=== PATIENT | female | born 1955 | race Caucasian/White ===

== ENCOUNTER 2019-12-15 09:14 | Outpatient (CLI) | payer MEDICAID, SELFPAY ==
--- NOTE | 2019-12-15 09:21 | FL_ITS ---
WS: [id number] Barium enema, 12/15/2019 Clinical Data: ABNORMAL COLONSCOPY/SCREENING COLON CANCER Fluoroscopy time: 2.3 minutes Comparison: None. Findings: The preliminary film shows multiple metallic clips in the right upper quadrant from a cholecystectomy . The barium was introduced in a retrograde fashion filling the entire colon. There are numerous divert icula of the descending colon and sigmoid region. No masses or polyps could be seen. There was reflux into the terminal ileum. The appendix was filled. There was moderate spasm of the descending colon d uring the examination. The postevacuation film was unremarkable. FL/FL barium enema [id number] Impression: Diverticula of the descending colon and sigmoid colon.
== END 2019-12-15 09:15 | disposition home or self-care (01) ==
LOC: RAD 09:15
PROVIDERS: Family Provider Physician Assistant Medical; Visit Provider Physician Assistant Medical
DX: K57.30 Diverticulosis of large intestine without perforation or abscess without bleeding (principal); R93.3 Abnormal findings on diagnostic imaging of other parts of digestive tract; Z12.11 Encounter for screening for malignant neoplasm of colon
CPT/HCPCS: 74270

== ENCOUNTER → 2021-02-15 16:09 | Outpatient (BNVA) | payer MEDICAID, SELFPAY | PROVIDERS: Family Provider Physician Assistant Medical; PCP Physician Assistant Medical; Referring Provider Family Medicine; Visit Provider Orthopaedic Surgery | DX: S99.911A Unspecified injury of right ankle, initial encounter (principal); X58.XXXA Exposure to other specified factors, initial encounter | CPT/HCPCS: 73610 ==

== ENCOUNTER 2021-02-15 16:29 | Outpatient (CLI) | payer MEDICAID, SELFPAY | END 2021-02-15 16:30 | disposition home or self-care (01) | LOC: SPT 16:30 | PROVIDERS: Family Provider Physician Assistant Medical; PCP Physician Assistant Medical; Visit Provider Orthopaedic Surgery | DX: Z46.89 Encounter for fitting and adjustment of other specified devices (principal); S82.831D Other fracture of upper and lower end of right fibula, subsequent encounter for closed fracture with routine healing; X58.XXXD Exposure to other specified factors, subsequent encounter | CPT/HCPCS: L1902 ==

== ENCOUNTER → 2021-09-26 15:40 | Outpatient (BNVA) | payer MEDICAID, SELFPAY | PROVIDERS: Family Provider Physician Assistant Medical; PCP Physician Assistant Medical; Referring Provider Physician Assistant Medical; Visit Provider Internal Medicine Cardiovascular Disease | DX: R06.02 Shortness of breath (principal); I50.33 Acute on chronic diastolic (congestive) heart failure; R06.00 Dyspnea, unspecified; I05.9 Rheumatic mitral valve disease, unspecified; I25.10 Atherosclerotic heart disease of native coronary artery without angina pectoris; E78.00 Pure hypercholesterolemia, unspecified; I27.20 Pulmonary hypertension, unspecified; G47.30 Sleep apnea, unspecified | CPT/HCPCS: 80048; 83880 ==

== ENCOUNTER 2021-11-24 10:34 | Outpatient (CLI) | payer MEDICAID, SELFPAY ==
[2021-11-24 10:51] VITALS: BMI 50.1
--- NOTE | 2021-11-24 11:02 | ECG_ITS ---
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 Interpretive Statements NAME OF STUDY: LEXISCAN SESTAMIBI STRESS TEST INDICATION: Heart Failure, New Onset, PROCEDURE: At the baseline, the EKG revealed sinus bradycardia with a rate of 56 bpm. The baseline blood pressure was 143/97 mm Hg with a heart rate of 56 beats/min. Lexiscan was infused over a period of 20 seconds. A total of 0.4 milligrams of Lexiscan was infused. The stress phase was continued for a total of 5 minutes. Heart rate at the end of the stress phase was 68 with a blood pressure 134/88. The EKG at the peak infusion revealed no significant changes. Sestamibi was injected 20 seconds after the Lexiscan infusion. Blood pressure at the end of the recovery phase was 138/90 with a heart rate of 66 per minute. CONCLUSION: 1. No significant EKG changes with the LexiScan infusion 2. No LexiScan induced chest pain or cardiac arrhythmia 3. Normal blood pressure and heart rate response 4. Sestamibi/sestamibi perfusion scan pending; see separate report. Electronically Signed On 12-01-2021 11:42:43 COAGULATING DRYING SUPERVISOR by Angelina Garber M.D. [email or web address]
--- NOTE | 2021-11-24 11:02 | NMCV_ITS ---
NM juve perf SPECT r/s* [id number] Eugenia Huang Age: 66 Gender: F : 1955 Exam Date: 11/24/2021 11:44 Ordering Phys: Angelina Garber MD ([email or web address]) Technologist: JIM Coronado Exam Location: [facility] Indications: SHORTNESS OF BREATH STRESS TEST Please see separate stress test report in [facility] for full findings IMAGE PROTOCOL Rest/Stress 1 Lexiscan Day Radiopharmaceutical Dose (mCi) Administration Site Administered by Rest: Tc-99m 10.7 IV JIM Jimenez Sestamibi Stress:Tc-99m 33.0 IV - right JIM Coronado Sestamisayra antecubital Rest: 24-Nov-2021 60 Discovery 630 Stress: 24-Nov-2021 30 Discovery 630 0.4mg Lexiscan.supine position only as patient was unable to lay prone. SPECT RESULTS Technical Quality: Excellent Raw Data Analysis: Normal Image Corrections: No attenuation or motion correction applied Summed Stress Score: 5 Summed Rest Score: 9 Summed Difference Score: 0 PERFUSION FINDINGS Moderate area of moderately decreased tracer uptake in the mid inferolateral, apical lateral, apical inferior, and LV apex. No significant reversibility was noted in these regions. Moderate area of slightly decreased tracer uptake was noted in the mid anteroseptal region. No significant reversibility was noted in this region as well FUNCTIONAL RESULTS (calculated via Gated SPECT) Stress Image LV EF (%): 74 Stress EDV (mL):114 TID: 1.04 Stress ESV (mL):30 FUNCTIONAL FINDINGS: Segmental wall motion analysis revealing no gross wall motion abnormalities IMPRESSIONS 1. Myocardial perfusion imaging revealing areas of persistent decreased tracer uptake in the inferolateral, anteroseptal and apical regions, most likely represent attenuation artifact. 2. Normal LV ejection fraction of 74%. 3. LV wall motion analysis revealing no gross wall motion abnormalities. 4. Normal LV volume. No significant coronary ischemia, based on the above findings Dr Angelina Garber MD FACC (Electronically Signed) Final Date: 24 November 2021 15:24 S
--- NOTE | 2021-11-24 12:23 | PC.NURSE ---
pt complains of excessive sob while lying for the nuclear imaging. 97% while siting, 92 while laying down. nurse called doctor for order for o2. Pt placed on 2L nasal canula and states she feels much better while laying down. will reapply o2 when pt returns for imaging.
[2021-11-24] MEDS: regadenoson 0.4 Mg/5 ml Syringe IVP (12:44)
[2021-11-24 12:55] VITALS: BP 138/90; PULSE 66
== END 2021-11-24 10:35 | disposition home or self-care (01) ==
LOC: CDL 10:39
PROVIDERS: PCP Physician Assistant Medical; Visit Provider Internal Medicine Cardiovascular Disease
DX: I50.9 Heart failure, unspecified (principal); R06.02 Shortness of breath
CPT/HCPCS: 78452; 93017; A9500; J2785

== ENCOUNTER 2022-01-23 14:33 | Outpatient (CLI) | payer MEDICAID, SELFPAY ==
[2022-01-23 15:12] LABS: Basophils # 0.1 10^3/uL (0.0-0.1); Basophils % 0.3 %; Eosinophils # 0.2 10^3/uL (0.0-0.8); Eosinophils % 0.5 %; Hematocrit 42.4 % (37.0-47.0); Hemoglobin 12.7 g/dL (11.5-15.3); Lymphocytes # 21.6 10^3/uL (0.8-4.8); Lymphocytes % 58.2 %; Mean Corpuscular Hemoglobin 24.7 pg (28.0-34.0); Mean Corpuscular Volume 82.3 fl (81-99); Mean Platelet Volume 12.4 fL (7.4-10.4); Monocytes % 13.5 %; Neutrophils # 10.11 10^3/uL (1.8-7.7); Neutrophils % 27.1 %; Nucleated Red Blood Cells % 0 %; Platelet Count 218 10^3/cmm (130-400); Red Blood Count 5.15 10^6/uL (4.1-5.3); Red Cell Distribution Width 14.9 % (12.1-15.1)
[2022-01-23 15:32] LABS: Alanine Aminotransferase 11 U/L (0-33); Albumin Level 4.2 g/dL (3.5-5.2); Alkaline Phosphatase 119 IU/L (35-105); Aspartate Amino Transferase 18 U/L (0-32); Blood Urea Nitrogen 9 mg/dL (8-23); Calcium 9.1 mg/dL (8.5-10.5); Carbon Dioxide 31 mmol/L (22-29); Chloride 101 mmol/L (98-107); Globulin 2.2 g/dL (1.3-4.6); Glomerular Filtration Rate 72.2 mL/min (90-130); Glucose 109 mg/dL (65-115); Lactate Dehydrogenase 213 U/L (135-214); Osmolality Calculated 291 mOsm/kg (285-295); Sodium 141 mmol/L (136-145); Total Bilirubin 0.6 mg/dL (0.15-1.2); Total Protein 6.4 g/dL (6.6-8.7)
[2022-01-23 16:01] LABS: White Blood Count 37.2 10^3/uL (4.0-10.0)
--- NOTE | 2022-01-24 17:44 | ONC CON_ITS ---
Dr. Huitron New Patient Note Patient: Eugenia Huang Unit #: [id number]: 1955 Dicatated By: Kavita Huitron M.D.Date of Visit: Jan 23, 2022 Onc MED New Patient/Consult Referring Physician: EMMA NOYOLA History of Present Illness: Ms. Eugenia Huang, is a 89-won[age]-xlo female with history of leukocytosis/lymphocytosis since December 2018, as per patient she was referred to medical oncology services in [place] where in January 2021, she underwent whole blood flow cytometry, which showed 2 distinct cell population, both of which show CLL phenotype with kappa light chain restriction. However, one of the population shows a bright expression of CD5 and dim expression of CD20 while the other shows moderate expression of CD5 and negative for CD20 and these features raises the possibility of biclonal disease process., As patient had no associated B symptoms and her CBC shows hemoglobin and platelet count within normal range and no significant lymphadenopathy, her medical oncologist decided to monitor. As per patient she did not go back to her medical oncologist in [place] since January 2021 and being followed by her PMD. As per patient in September 2021, she she undergone CT scan of abdomen pelvis for abdominal pain and that showed multiple indeterminate prominent peripancreatic, gastrohepatic and periportal lymph nodes measuring 1.8 x 3.8 x 2.1 cm and 1 in the ralf hepatis was 1.3 x 3.5 x 1.4 cm and they appear increased in size from CT scan of abdomen done in December 2018. As per patient she saw her primary care physician in December 2021 and at that time she was advised to establish oncology care here in [place]. Patient has history of sleep apnea, she used to use BiPAP machine Patient denies any night sweats, denies any recurrent fever, denies any weight loss, denies any peripheral lymphadenopathy, denies any abdominal fullness, denies jaundice, denies any dysuria or hematuria denies any sore throat. But generalized weakness and fatigue, and sleepy most of the time as she is not using her BiPAP machine as sleep study is under consideration to determine whether she will benefit from CPAP or BiPAP. Past Medical History: Ms. Huang's medical history consists of arteriosclerotic heart disease, chronic obstructive pulmonary disease, depression, gastroesophageal reflux disease, hyperlipidemia, hypertension, hypothyroidism, mitral valve stenosis, myocardial infarction, obstructive sleep apnea, right heart failure due to pulmonary hypertension, and type II diabetes. Past Surgical History: Ms. Huang's surgical/procedural history consists of cholecystectomy, coronary stent, hysterectomy, and colonoscopy in 2019. Medications: Aspirin 1 Tablet (of 81 mg) Tablet, enteric coated Oral daily, Atorvastatin Calcium 1 Tablet (of 40 mg) Oral daily, buPROPion HCl ER (SR) 1 Tablet (of 150 mg) Tablet SR 12 HR Oral b.i.d., Citalopram Hydrobromide 1 Tablet (of 40 mg) Oral daily, Furosemide 3 Tablet (of 20 mg) Oral b.i.d., Isosorbide Mononitrate ER 1 Tablet (of 30 mg) Tablet SR 24 HR Oral b.i.d., Levothyroxine Sodium 1 Tablet (of 50 mcg) Oral daily, Metoprolol Succinate 1 Capsule (of 50 mg) Capsule ER 24 Hr Sprinkle Oral daily, Oxybutynin Chloride 1 Tablet (of 5 mg) Oral b.i.d., Pantoprazole Sodium 1 Tablet (of 20 mg) Tablet, enteric coated Oral daily Allergies: Bactrim DS and Lisinopril. Social History: Ms. Huang is single. She is a daily smoker who has smoked 1.0 pack/day for 21 years. She has no history of drinking. She has indicated exposure to the following products: cigarettes. Ms. Huang reports the following support systems: lives with spouse, significant other, family, or friends. Family History: There is no documented family history. Review Of Symptoms: Review of Systems is not available for this patient. Vital Signs: Performed on Jan 23, 2022 15:52: 10, 0, 50.94 (HIGH), 2.43 sq.m, 66 in, 93 % (LOW), 60 /min, 18 /min, 111/73 mm(hg), 97.5 F (LOW), and 315.6 lbs (HIGH). Performance Status: 1 - No physically strenuous activity, but ambulatory and able to carry out light or sedentary work (e.g. office work, light house work). (ECOG) Physical Examination: ENMT - No mouth sores, no thrush, no jaundice, no cervical lymphadenopathy, Respiratory - Poor air entry otherwise clear, Cardiovascular - Regular rate and rhythm of heart, Abdomen - Soft, bowel sounds present, Extremities - Trace edema bilaterally. Lab/Imaging: Most recent lab results are not available for this patient. Impression: Chronic lymphocytic leukemia, stage 0, with normal hemoglobin and platelet count CT scan of abdomen pelvis done on October 11, 2021 for abdominal pain showed spleen mildly enlarged at 13.5 cm, and there is an indeterminate 2.8 cm left adrenal nodule and 1.8 x 3.8 x 2.1 cm peripancreatic lymph node and one of the ralf hepatis lymph node measuring 1.3 x 3.5 x 2.4 cm. Morbid obesity Sleep apnea, noncompliant with her BiPAP machine Depression Anxiety GERD Hypertension Mitral stenosis Coronary artery disease status post coronary artery stent done in May 2020. Chronic smoking Plan: Discussed with patient regarding her labs white blood count 37.2, hemoglobin 12.7 g medical 42.4 platelets 218,000 absolute neutrophil count 10,000, absolute lymphocyte count 21,600 CMP within normal limits including LDH Clinically, patient is doing well with the no new signs symptom e.g. B symptoms, her follow-up CBC done today shows hemoglobin and platelet count within normal range, moderate leukocytosis/lymphocytosis consistent with early stage chronic lymphocytic leukemia, no peripheral lymphadenopathy but CT scan of abdomen pelvis done in September 2021 for abdominal pain showed indeterminate intra-abdominal lymphadenopathy but no significant organomegaly e.g. mildly enlarged spleen at 13.5 cm. As far as chronic lymphocytic leukemia is concerned, she has stable disease and no associated symptoms, will continue to monitor and she will return to clinic in 4 months with CBC CMP LDH and CT scan of chest abdomen pelvis to assess intra-abdominal lymphadenopathy. Patient was advised to quit smoking, was offered any assistance she may need. Patient also has underlying sleep apnea which may be causing generalized weakness and fatigue, she was advised to use BiPAP machine as recommended by PMD, as per patient she is considering sleep study to determine whether BiPAP or CPAP is better for her. Patient was advised to call us in case she has any new B symptoms or any jaundice otherwise return to clinic in 4 months as mentioned above. Signed By: Kavita Huitron M.D. <<Signature on File>>
== END 2022-01-23 14:34 | disposition home or self-care (01) ==
PROVIDERS: PCP Physician Assistant Medical; Visit Provider Internal Medicine Hematology & Oncology
DX: C91.10 Chronic lymphocytic leukemia of B-cell type not having achieved remission (principal); J44.9 Chronic obstructive pulmonary disease, unspecified; F32.A Depression, unspecified; K21.9 Gastro-esophageal reflux disease without esophagitis; E78.5 Hyperlipidemia, unspecified; I10 Essential (primary) hypertension; E03.9 Hypothyroidism, unspecified; I25.2 Old myocardial infarction; I27.20 Pulmonary hypertension, unspecified; I50.9 Heart failure, unspecified; I25.10 Atherosclerotic heart disease of native coronary artery without angina pectoris; F17.200 Nicotine dependence, unspecified, uncomplicated; Z79.899 Other long term (current) drug therapy
CPT/HCPCS: 36415; 80053; 83615; 85025; 99205

== ENCOUNTER 2022-04-25 14:50 | Outpatient (CLI) | payer MEDICAID, SELFPAY ==
--- NOTE | 2022-04-25 15:32 | MM_ITS ---
WS: [id number] BILATERAL 3D TOMOSYNTHESIS DIGITAL SCREENING MAMMOGRAPHY WITH CAD CLINICAL INFORMATION: SCREENING HISTORY: Screening mammogram. No current complaints. COMPARISON: February 20, 2021 TECHNIQUE: Bilateral CC and MLO views. FINDINGS: Scattered fibroglandular densities bilaterally. A few incidental punctate calcifications. Prominent b ilateral axillary lymph nodes unchanged since February 20, 2021. No suspicious focal mass, asymmetry, ca lcifications, or architectural distortion. No evidence of malignancy. MM/[place] [id number] IMPRESSION: BI-RADS: 2-Benign FOLLOW UP: 1 Year Follow-up Recommend return to annual screening mammography.
== END 2022-04-25 14:51 | disposition home or self-care (01) ==
LOC: RAD 14:57
PROVIDERS: PCP Family Medicine; Visit Provider Family Medicine
DX: Z12.31 Encounter for screening mammogram for malignant neoplasm of breast (principal)
CPT/HCPCS: 77063; 77067

== ENCOUNTER 2022-08-23 17:30 | Oncology outpatient (recurring) (ONCR) | payer MEDICARE, MEDICAID, SELFPAY ==
[2022-08-20 09:00] LABS: Basophils # 0.1 10^3/uL (0.0-0.1); Basophils % 0.2 %; Eosinophils # 0.3 10^3/uL (0.0-0.8); Eosinophils % 0.6 %; Hematocrit 43.2 % (37.0-47.0); Hemoglobin 13.1 g/dL (11.5-15.3); Lymphocytes # 39.4 10^3/uL (0.8-4.8); Lymphocytes % 76.5 %; Mean Corpuscular HGB Conc 30.3 g/dL (30.0-36.0); Mean Corpuscular Volume 85.9 fl (81-99); Monocytes # 3.9 10^3/uL (0.2-0.9); Monocytes % 7.5 %; Neutrophils % 14.8 %; Nucleated Red Blood Cells % 0 %; Platelet Count 148 10^3/cmm (130-400); Red Blood Count 5.03 10^6/uL (4.1-5.3); Red Cell Distribution Width 14.6 % (12.1-15.1)
[2022-08-20 09:08] LABS: White Blood Count 51.6 10^3/uL (4.0-10.0)
[2022-08-20 09:22] LABS: Alanine Aminotransferase 10 U/L (0-33); Albumin Level 4.1 g/dL (3.5-5.2); Alkaline Phosphatase 114 U/L (35-105); Anion Gap 11.8 (5-19); Aspartate Amino Transferase 12 U/L (0-32); Blood Urea Nitrogen 13 mg/dL (8-23); Calcium 8.9 mg/dL (8.5-10.5); Carbon Dioxide 34 mmol/L (22-29); Chloride 99 mmol/L (98-107); Globulin 2.4 g/dL (1.3-4.6); Glomerular Filtration Rate 62.8 mL/min (90-130); Glucose 105 mg/dL (65-115); Lactate Dehydrogenase 258 U/L (135-214); Osmolality Calculated 292 mOsm/kg (285-295); Potassium 3.8 mmol/L (3.5-5.1); Sodium 141 mmol/L (136-145); Total Bilirubin 0.6 mg/dL (0.15-1.2); Total Protein 6.5 g/dL (6.6-8.7)
--- NOTE | 2022-08-23 16:45 | CT_ITS ---
WS: [id number] CT CHEST, ABDOMEN, AND PELVIS TECHNIQUE: Contrast-enhanced CT of the chest, abdomen, and pelvis with coronal and sagittal reformatt ed images. CLINICAL INFORMATION: assess intra-abdominal lymphadenopathy COMPARISON: None. DLP: 1890.[address] scans at [facility] use at least one of these dose optimization techniques: automated e xposure control; mA and/or kV adjustment per patient size (includes targeted exams where dose is matc hed to clinical indication); or iterative reconstruction. CT CHEST: Both lungs are well aerated. No acute pulmonary infiltrates. No focal pneumonia or pleural fluid. Car diomegaly. Normal caliber thoracic aorta. Mild aortic calcification. Normal caliber descending thorac ic aorta. Celiac and SMA origins are patent. Cholecystectomy clips. Partially visualized hepatomegaly . Splenomegaly. No mediastinal or hilar lymphadenopathy. Prominent diffuse bilateral axillary lymphadenopathy. Latera l subpectoral lymphadenopathy. Elevation LEFT hemidiaphragm. Subsegmental atelectasis LEFT lower lobe . CT ABDOMEN AND PELVIS: Hepatomegaly. Splenomegaly. Spleen measures 15.3 cm [id number]. Liver measures 19.0 cm craniocaudal . Cholecystectomy clips. Normal portal vein and splenic vein. Normal pancreatic parenchymal enhancement . Low-attenuation LEFT adrenal lesion measuring 2.7 x 1.9 cm. RIGHT adrenal gland is normal. Normal r enal parenchymal enhancement. No hydronephrosis. Sigmoid diverticulosis. No evidence of acute diverticulitis. Prior hysterectomy. Normal appendix in t he upper quadrant. Fat containing umbilical hernia. Disc space narrowing L4-L5 and L5-S1. Bulky upper abdominal lymphadenopathy. Bulky lymphadenopathy in the ralf hepatis. Celiac axis lympha denopathy. Periaortic lymphadenopathy. Prominent lymph nodes along the proximal iliac chains. Enlarge d RIGHT external iliac lymph node. A few prominent inguinal lymph nodes RIGHT greater than LEFT upper limits of normal. LEFT pelvic sidewall lymphadenopathy. CT/CT chest abd pel w con* IMPRESSION: 1. Bulky axillary and lateral subpectoral lymphadenopathy 2. Marked lymphadenopathy in the ralf hepatis with lymph node measuring 4.6 x 3.5 CM. Bulky lymphadenopathy in the upper abdomen extending along the celiac axis and ralf hepatis. 3. LEFT periaortic and iliac chain lymphadenopathy. Prominent LEFT pelvic side wall lymph node measuring 2.3 x 1.3 CM. 4. Enlarged RIGHT external iliac lymph node measuring 1.8 cm. 5. Hepatomegaly and splenomegaly described above. 6. Sigmoid diverticulosis. 7. Prior cholecystectomy. 8. Fat-containing abdominal hernia. 9. LEFT adrenal lesion most likely adenoma measuring 2.7 x 1.9 cm
[2022-08-23] MEDS: iohexol 350 mg/mL 100 mL Btl PO (17:23)
[2022-08-23] MEDS: iohexol 350 mg/mL 100 mL Btl IV (17:23)
== END 2022-09-17 23:59 | disposition home or self-care (01) ==
LOC: ONCMED 08-27 20:07
PROVIDERS: Nurse Practitioner; PCP Family Medicine; Visit Provider Internal Medicine Hematology & Oncology
DX: C91.10 Chronic lymphocytic leukemia of B-cell type not having achieved remission (principal); K57.30 Diverticulosis of large intestine without perforation or abscess without bleeding; K46.9 Unspecified abdominal hernia without obstruction or gangrene
CPT/HCPCS: 36415; 71260; 74177; 80053; 83615; 85025

== ENCOUNTER 2022-10-05 08:17 | Oncology outpatient (recurring) (ONCR) | payer MEDICARE, MEDICAID, SELFPAY ==
[2022-10-05 08:57] LABS: Basophils # 0.1 10^3/uL (0.0-0.1); Basophils % 0.2 %; Eosinophils # 0.2 10^3/uL (0.0-0.8); Eosinophils % 0.4 %; Hematocrit 40.7 % (37.0-47.0); Hemoglobin 12.2 g/dL (11.5-15.3); Lymphocytes # 49.7 10^3/uL (0.8-4.8); Lymphocytes % 79.4 %; Mean Corpuscular Hemoglobin 26.1 pg (28.0-34.0); Mean Corpuscular Volume 87.2 fl (81-99); Mean Platelet Volume 11.9 fL (7.4-10.4); Monocytes # 3.9 10^3/uL (0.2-0.9); Monocytes % 6.1 %; Neutrophils # 8.45 10^3/uL (1.8-7.7); Neutrophils % 13.5 %; Nucleated Red Blood Cells % 0 %; Platelet Count 168 10^3/cmm (130-400); Red Blood Count 4.67 10^6/uL (4.1-5.3); Red Cell Distribution Width 14.3 % (12.1-15.1)
[2022-10-05 09:09] LABS: Alanine Aminotransferase 13 U/L (0-33); Albumin Level 4.2 g/dL (3.5-5.2); Alkaline Phosphatase 106 U/L (35-105); Aspartate Amino Transferase 15 U/L (0-32); Blood Urea Nitrogen 21 mg/dL (8-23); Calcium 9.4 mg/dL (8.5-10.5); Carbon Dioxide 32 mmol/L (22-29); Chloride 100 mmol/L (98-107); Globulin 2.4 g/dL (1.3-4.6); Glomerular Filtration Rate 49.8 mL/min (90-130); Glucose 105 mg/dL (65-115); Osmolality Calculated 293 mOsm/kg (285-295); Sodium 140 mmol/L (136-145); Total Bilirubin 0.6 mg/dL (0.15-1.2); Total Protein 6.6 g/dL (6.6-8.7)
[2022-10-05 09:10] LABS: Anion Gap 12.3 (5-19); Lactate Dehydrogenase 223 U/L (135-214); Potassium 4.3 mmol/L (3.5-5.1)
[2022-10-05 09:22] LABS: Slide Review Slide Review Perform; White Blood Count 62.6 10^3/uL (4.0-10.0)
== END 2022-10-17 23:59 | disposition home or self-care (01) ==
PROVIDERS: PCP Family Medicine; Visit Provider Internal Medicine Hematology & Oncology
DX: C91.10 Chronic lymphocytic leukemia of B-cell type not having achieved remission (principal); E66.9 Obesity, unspecified; Z68.42 Body mass index [BMI] 45.0-49.9, adult; F17.210 Nicotine dependence, cigarettes, uncomplicated; Z79.899 Other long term (current) drug therapy
CPT/HCPCS: 36415; 80053; 81263; 82232; 83615; 85025; 88185; 88264; 88271; 88367; 88374; 99214

== ENCOUNTER 2022-11-21 12:14 | Oncology outpatient (recurring) (ONCR) | payer MEDICARE, MEDICAID, SELFPAY ==
[2022-11-21 12:39] LABS: Basophils # 0.3 10^3/uL (0.0-0.1); Basophils % 0.4 %; Eosinophils # 0.4 10^3/uL (0.0-0.8); Eosinophils % 0.6 %; Hematocrit 45.3 % (37.0-47.0); Hemoglobin 13.8 g/dL (11.5-15.3); Lymphocytes # 59.4 10^3/uL (0.8-4.8); Lymphocytes % 79.1 %; Mean Corpuscular HGB Conc 30.5 g/dL (30.0-36.0); Mean Corpuscular Hemoglobin 26.2 pg (28.0-34.0); Mean Corpuscular Volume 86.1 fl (81-99); Mean Platelet Volume 12.4 fL (7.4-10.4); Monocytes # 5.1 10^3/uL (0.2-0.9); Monocytes % 6.7 %; Neutrophils # 9.54 10^3/uL (1.8-7.7); Neutrophils % 12.7 %; Nucleated Red Blood Cells % 0 %; Platelet Count 163 10^3/cmm (130-400); Red Blood Count 5.26 10^6/uL (4.1-5.3); Red Cell Distribution Width 14.2 % (12.1-15.1)
[2022-11-21 12:42] LABS: Slide Review Slide Review Perform; White Blood Count 75.1 10^3/uL (4.0-10.0)
[2022-11-21 13:25] LABS: Alanine Aminotransferase 11 U/L (0-33); Albumin Level 4.1 g/dL (3.5-5.2); Alkaline Phosphatase 115 U/L (35-105); Aspartate Amino Transferase 15 U/L (0-32); Blood Urea Nitrogen 14 mg/dL (8-23); Calcium 9.2 mg/dL (8.5-10.5); Carbon Dioxide 28 mmol/L (22-29); Chloride 103 mmol/L (98-107); Globulin 2.5 g/dL (1.3-4.6); Glomerular Filtration Rate 62.8 mL/min (90-130); Glucose 98 mg/dL (65-115); Osmolality Calculated 292 mOsm/kg (285-295); Sodium 141 mmol/L (136-145); Total Bilirubin 0.5 mg/dL (0.15-1.2); Total Protein 6.6 g/dL (6.6-8.7)
[2022-11-21 13:26] LABS: Anion Gap 14.4 (5-19); Lactate Dehydrogenase 228 U/L (135-214); Potassium 4.4 mmol/L (3.5-5.1)
[2022-11-21 13:42] LABS: Hepatitis A Antibody IgM Non-Reactive (Nonreactive); Hepatitis B Core AB, Total Non-Reactive (Nonreactive); Hepatitis B Surface AB 3.5 (11.5-1000); Hepatitis B Surface Antigen Non-Reactive (Nonreactive); Hepatitis C Virus Antibody Non-Reactive (Nonreactive)
== END 2022-12-18 23:59 | disposition home or self-care (01) ==
PROVIDERS: PCP Family Medicine; Visit Provider Internal Medicine Hematology & Oncology
DX: C91.10 Chronic lymphocytic leukemia of B-cell type not having achieved remission (principal); R74.02 Elevation of levels of lactic acid dehydrogenase [LDH]; F17.210 Nicotine dependence, cigarettes, uncomplicated; Z79.899 Other long term (current) drug therapy
CPT/HCPCS: 36415; 80053; 83615; 85025; 86705; 86706; 86709; 86803; 87340; 99214

== ENCOUNTER → 2023-03-06 15:51 | Outpatient (BNVA) | payer MEDICARE, MEDICAID, SELFPAY | PROVIDERS: PCP Family Medicine; Referring Provider Registered Nurse; Visit Provider Dermatology | DX: R21 Rash and other nonspecific skin eruption (principal); I87.2 Venous insufficiency (chronic) (peripheral); L30.8 Other specified dermatitis | CPT/HCPCS: 99203 ==

== ENCOUNTER → 2023-04-17 15:49 | Outpatient (BNVA) | payer MEDICARE, MEDICAID, SELFPAY | PROVIDERS: PCP Family Medicine; Visit Provider Dermatology | DX: C44.311 Basal cell carcinoma of skin of nose (principal); R21 Rash and other nonspecific skin eruption; I87.2 Venous insufficiency (chronic) (peripheral); L30.8 Other specified dermatitis; L81.0 Postinflammatory hyperpigmentation; S80.922A Unspecified superficial injury of left lower leg, initial encounter; X58.XXXA Exposure to other specified factors, initial encounter | CPT/HCPCS: 11102; 11103; 99213 ==

== ENCOUNTER 2023-04-22 12:35 | Outpatient (CLI) | payer MEDICARE, MEDICAID, SELFPAY ==
--- NOTE | 2023-04-22 13:30 | CT_ITS ---
WS: [id number] CT CHEST, ABDOMEN AND PELVIS WITH CONTRAST HISTORY: Follow-up lymphocytic leukemia. Short of breath. TECHNIQUE: Contiguous 5 mm axial imaging performed through the chest, abdomen and pelvis with IV cont rast, oral contrast has not been provided. Coronal and sagittal reformats chest. Coronal and sagittal reformats through the abdomen and pelvis. All CT scans at [facility] use at least one of the se dose optimization techniques: automated exposure control; mA and/or kV adjustment per patient size (includes targeted exams where dose is matched to clinical indication); or iterative reconstruction. CONTRAST: Omnipaque 350; 100 mL IV. DLP: 1647.49 mGy.cm COMPARISON: 08/23/[address]: Lung volumes are slightly decreased. Subsegmental atelectasis at the LEFT lung base. Mild e levation of the LEFT hemidiaphragm is similar to the prior study. There is mild haziness and groundgl ass attenuation throughout the lungs. Heart is mildly enlarged. Very dense calcification along the mi tral annular valve plane no pericardial or pleural effusions. Pulmonary artery is enlarged. No fillin g defects in the proximal pulmonary artery. Normal thoracic aorta. Previously described lymph nodes within the chest have significantly improved. No supraclavicular lym ph nodes. Bilateral axillary and subpectoralis lymph nodes have significantly decreased in size. The largest lymph node is 1.6 cm within normal fatty hilum in the RIGHT axilla. Number of lymph nodes is still increased but much improved. RIGHT paratracheal lymph node at the largest measuring 1.3 cm. Sma ller mediastinal and hilar lymph nodes. The lymphoid tissue has decreased. No new lymph nodes are rachele ntified. Abdomen CT: Normal liver. Prior cholecystectomy. Spleen is mildly enlarged at 13.7 cm in length, carmen lar to the prior study. Negative pancreas. Normal RIGHT adrenal gland. LEFT adrenal mass is well-circ umscribed measures 2.9 x 2.0 cm. Not increased in size since the prior CT. Mild atherosclerosis aorta . No aneurysm. Kidneys are normal size. No renal obstruction. Nondistended stomach. No oral contrast was given for this examination. No small bowel obstruction. Mi ld constipation. Normal appendix. Numerous diverticula in the distal colon. Significant improvement in the bulky upper abdominal lymphadenopathy. Small ralf hepatis lymph nodes have decreased in size. The largest lymph node at the bifurcation of the celiac axis measures 2.7 x 1.8 cm with moderate decrease in size. Bulky cluster of lymph nodes at the ralf hepatis now measures 3.1 x 2.7 cm as compared to 4.7 x 3.6 cm. Small periaortic and aortocaval lymph nodes. Small retrope ritoneal lymph nodes. These lymph nodes have decreased in size. Retroperitoneal lymph nodes continue along the iliac chains. Small lymph nodes. Deep RIGHT inguinal l ymph node at 1.6 cm decreased in size. LEFT obturator lymph node now measures 2.5 cm and also decreas ed in size. No new or enlarging lymph nodes. Multiple ventral abdominal wall hernias contain fat. Pelvic CT: No free fluid. Urinary bladder is well distended. Prior hysterectomy. No destructive bone lesions. CT/CT chest abdpel w/*[id number] IMPRESSION: 1. Overall moderate improvement in the lymphadenopathy within the chest, abdom en and pelvis. 2. Largest cluster of bulky lymph nodes in the ralf hepatis measures 3.1 x 2. 7 cm as compared to 4.7 x 3.6 cm. All lymph nodes have decreased in size since the prior study. 3. Spleen is mildly enlarged at 13.7 cm. 4. Prior cholecystectomy and hysterectomy. 5. Multiple ventral abdominal wall hernias containing fat. 6. LEFT adrenal mass, indeterminate but stable measuring 2.9 x 2.0 cm.
[2023-04-22] MEDS: iohexol 350 mg/mL 500 mL Btl (per mL) IV (13:48)
== END 2023-04-22 12:36 | disposition home or self-care (01) ==
LOC: RAD 12:35
PROVIDERS: PCP Family Medicine; Visit Provider Internal Medicine Hematology & Oncology
DX: C91.10 Chronic lymphocytic leukemia of B-cell type not having achieved remission (principal); R59.0 Localized enlarged lymph nodes; E27.9 Disorder of adrenal gland, unspecified; Z90.49 Acquired absence of other specified parts of digestive tract; Z90.710 Acquired absence of both cervix and uterus
CPT/HCPCS: 71260; 74177; Q9967

== ENCOUNTER → 2023-05-13 07:58 | Outpatient (BNVA) | payer MEDICARE, MEDICAID, SELFPAY | PROVIDERS: PCP Family Medicine; Visit Provider Dermatology | DX: C44.311 Basal cell carcinoma of skin of nose (principal) | CPT/HCPCS: 12052; 14060; 17311 ==

== ENCOUNTER 2023-05-23 07:26 | Oncology outpatient (recurring) (ONCR) | payer MEDICARE, MEDICAID, SELFPAY ==
[2023-05-23 07:27] VITALS: BP 125/75; PULSE 65; RESP 18; TEMP 36.6; O2SAT 95
[2023-05-23 07:43] LABS: Hematocrit 42.2 % (37.0-47.0); Hemoglobin 12.9 g/dL (11.5-15.3); Mean Corpuscular HGB Conc 30.6 g/dL (30.0-36.0); Mean Corpuscular Hemoglobin 23.5 pg (28.0-34.0); Mean Corpuscular Volume 76.7 fl (81-99); Mean Platelet Volume 11.4 fL (7.4-10.4); Platelet Count 275 10^3/cmm (130-400); Red Cell Distribution Width 15.1 % (12.1-15.1)
[2023-05-23 08:01] LABS: Alanine Aminotransferase 18 U/L (0-33); Albumin Level 4.2 g/dL (3.5-5.2); Alkaline Phosphatase 81 U/L (35-105); Anion Gap 16.2 (5-19); Aspartate Amino Transferase 21 U/L (0-32); Blood Urea Nitrogen 52 mg/dL (8-23); Calcium 9.3 mg/dL (8.5-10.5); Carbon Dioxide 36 mmol/L (22-29); Chloride 90 mmol/L (98-107); Glomerular Filtration Rate 26.5 mL/min (90-130); Glucose 177 mg/dL (65-115); Lactate Dehydrogenase 311 U/L (135-214); Osmolality Calculated 306 mOsm/kg (285-295); Potassium 3.2 mmol/L (3.5-5.1); Sodium 139 mmol/L (136-145); Total Bilirubin 0.5 mg/dL (0.15-1.2); Total Protein 7.2 g/dL (6.6-8.7)
[2023-05-23 08:22] LABS: Slide Review Slide Review Perform; White Blood Count 34.6 10^3/uL (4.0-10.0)
[2023-05-23 08:23] LABS: Lymphocytes 50 %; Monocytes Absolute 1.7 10^3/cmm (0.1-0.6); Segmented Neutrophils 29 %; Total Cells Counted 100 (0-100)
[2023-05-23 08:24] LABS: Lymphocytes Absolute 22.8 10^3/cmm (1.2-3.4); Microcytosis 1+; Platelet Estimate Normal (Normal)
== END 2023-06-17 23:59 | disposition home or self-care (01) ==
PROVIDERS: PCP Family Medicine; Visit Provider Internal Medicine Hematology & Oncology
DX: C91.10 Chronic lymphocytic leukemia of B-cell type not having achieved remission (principal); E86.0 Dehydration; Z79.01 Long term (current) use of anticoagulants; Z87.891 Personal history of nicotine dependence; I48.20 Chronic atrial fibrillation, unspecified; Z79.4 Long term (current) use of insulin; R73.9 Hyperglycemia, unspecified; E87.6 Hypokalemia; Z79.899 Other long term (current) drug therapy; R74.02 Elevation of levels of lactic acid dehydrogenase [LDH]; F17.210 Nicotine dependence, cigarettes, uncomplicated
CPT/HCPCS: 36415; 80053; 83615; 85007; 85025; 99024; 99214

== ENCOUNTER → 2023-07-01 14:19 | Outpatient (BNVA) | payer MEDICARE, MEDICAID, SELFPAY | PROVIDERS: PCP Registered Nurse; Visit Provider Nurse Practitioner Family | DX: L97.829 Non-pressure chronic ulcer of other part of left lower leg with unspecified severity (principal); S60.562A Insect bite (nonvenomous) of left hand, initial encounter; X58.XXXA Exposure to other specified factors, initial encounter; D22.5 Melanocytic nevi of trunk; L85.3 Xerosis cutis; L81.4 Other melanin hyperpigmentation; L57.8 Other skin changes due to chronic exposure to nonionizing radiation | CPT/HCPCS: 99214 ==

== ENCOUNTER → 2023-07-15 13:18 | Outpatient (BNVA) | payer MEDICARE, MEDICAID, SELFPAY | PROVIDERS: PCP Registered Nurse; Visit Provider Dermatology | DX: L97.829 Non-pressure chronic ulcer of other part of left lower leg with unspecified severity (principal); S20.402A Unspecified superficial injuries of left back wall of thorax, initial encounter; Z85.828 Personal history of other malignant neoplasm of skin; X58.XXXA Exposure to other specified factors, initial encounter; L30.8 Other specified dermatitis; Y99.9 Unspecified external cause status | CPT/HCPCS: 99213 ==

== ENCOUNTER → 2023-10-01 09:27 | Outpatient (BNVA) | payer MEDICARE, MEDICAID, SELFPAY | PROVIDERS: PCP Registered Nurse; Referring Provider Nurse Practitioner Family; Visit Provider Surgery | DX: K21.9 Gastro-esophageal reflux disease without esophagitis (principal); Z12.11 Encounter for screening for malignant neoplasm of colon | CPT/HCPCS: 99024; 99204 ==

== ENCOUNTER 2023-10-30 05:30 | Day surgery (SDC) | payer MEDICARE, MEDICAID, SELFPAY ==
[2023-10-30 06:06] VITALS: BP 153/79; PULSE 93; RESP 20; TEMP 36.6; O2SAT 93; BMI 47.6
--- NOTE | 2023-10-30 06:58 | W.PM.OPSUD ---
Surgery/Procedure H&P Update DATE OF PROCEDURE: October 30, 2023 DATE H&P PERFORMED: 10/01/23 H&P UPDATE INFORMATION: I have reviewed H&P completed within last 30 days, I have examined patient prior to procedure and No changes to prior documentation PLANNED PROCEDURE: Operation Date: 10/30/23 07:00 Proposed Procedures p [id number] egd [id number] colon G0121 screen colon A risk K21.9, Z12.11(Not Applicable) - DO girma Hammond Colonoscopy(Not Applicable) - Leo Garcia DO
--- NOTE | 2023-10-30 07:01 | P.ANESASSM_ITS ---
Pre-Anesthetic Assessment Height/Weight: Height 1.7 m Weight 137.892 kg Temp Pulse Resp BP Pulse Ox O2 Del Method 97.8 F 93 20 H 153/79 93 Room Air 10/30/23 06:06 10/30/23 06:06 10/30/23 06:06 10/30/23 06:06 10/30/23 06:06 10/30/23 06:06 Preop Diagnosis: screening, eval gerd Operation Date: 10/30/23 07:00 Proposed Procedures p [id number] egd [id number] colon G0121 screen colon A risk K21.9, Z12.11(Not Applicable) - Leo Garcia DO s Colonoscopy(Not Applicable) - Leo Garcia DO Was Beta Bari taken within 24 hours: Yes Was Clonidine taken within 24 hours: N/A Last intake: Intake Last Liquid Date 10/29/23 Last Liquid Time 23:59 Last Solid Date 10/28/23 Last Solid Time 18:00 Social No alcohol and No tobacco Exam alert, oriented x 3, clear to auscultation bilaterally and regular rate & rhythm Airway Submandibular: within normal limits Cervical ROM: within normal limits Mallampati: Class II Comments: Comments: dentures removed History/ROS No significant history except as noted and No significant complaints Pulmonary Chronic Obstructive Pulmonary Disease and Sleep Apnea wears bipap. nebulizers. home oxygen prn CV/HEM Atrial Fibrillation, Arrythmia, Coronary Artery Disease, Congestive Heart Failure, Hypertension and Myocardial Infarction 1 stent placed 2 years ago. sees cardiology regularly. states she needs pacemaker for afib. Chronic Renal Insufficiency stage 3 kidney disease Hepatic None reported GI Gastroesophageal Reflux Disease feels like she is chking when she lays down Metabolic Diabetes Mellitus and Morbid Ob[place] [facility] [place] None reported Neuropsych None reported Anesthetic Plan ASA status: 4 Anesthesia: Anesthesia Evaluation and MAC Risk of > 500 ml blood loss (7ml/kg in children): Yes, adequate IV access and fluids planned Medications/Allergies Home Medications Medication Instructions Recorded Confirmed Last Taken Type albuterol sulfate 2.5 mg/3 mL 2.5 mg inhalation Q6H PRN 01/05/20 10/28/23 10/23/23 History (0.083 %) solution for nebulization Shortness Of Breath albuterol sulfate 90 mcg/actuation 2 puff inhalation Q6H PRN 01/05/20 10/28/23 10/23/23 History aerosol inhaler (ProAir HFA) Shortness Of Breath budesonide-formoterol HFA 160 2 puff inhalation BID 01/05/20 10/28/23 10/23/23 History mcg-4.5 mcg/actuation aerosol inhaler (Symbicort) bupropion HCl 150 mg tablet,12 hr 150 mg PO BID 01/05/20 10/28/23 10/28/23 History sustained-release atorvastatin 40 mg tablet 40 mg PO DAILY 09/26/21 10/28/23 10/28/23 History citalopram 40 mg tablet 40 mg PO DAILY 09/26/21 10/28/23 10/28/23 History levothyroxine 50 mcg tablet 50 mcg PO DAILY 09/26/21 10/28/23 10/28/23 History metoprolol succinate 50 mg 50 mg PO DAILY 09/26/21 10/28/23 10/29/23 11:00 History tablet,extended release 24 hr cholecalciferol (vitamin D3) 1,250 1,250 mcg PO .WEEKLY 04/18/22 10/28/23 10/26/23 History mcg (50,000 unit) capsule CPAP 05/23/23 10/01/23 Unknown History diltiazem HCl 120 mg tablet 120 mg PO BID 05/23/23 10/28/23 10/28/23 History hydroxyzine HCl 10 mg tablet 10 mg PO TID PRN Itching 05/23/23 10/28/23 Unknown History metolazone 5 mg tablet 5 mg PO DAILY 05/23/23 10/28/23 10/23/23 History mupirocin 2 % ointment topical kit 1 applic topical BID 05/23/23 10/28/23 Unknown History nystatin 100,000 unit/gram topical 1 applic topical DAILY 05/23/23 10/28/23 10/27/23 History cream oxygen-air delivery systems 05/23/23 10/01/23 Unknown History potassium chloride 20 mEq 40 meq PO BID 05/23/23 10/28/23 10/28/23 History tablet,extended release(part/cryst) sennosides 8.6 mg tablet 8.6 mg PO BID 05/23/23 10/28/23 10/28/23 History torsemide 20 mg tablet 20 mg PO DAILY 05/23/23 10/28/23 10/28/23 History warfarin 5 mg tablet 5 mg PO DAILY 05/23/23 10/28/23 10/22/23 History pantoprazole 40 mg tablet,delayed 40 mg PO BID 6 weeks #84 tabs 10/01/23 10/28/23 10/28/23 Rx release (Protonix) fluticasone furoate 100 1 inh inhalation DAILY 10/28/23 10/28/23 10/23/23 History mcg-vilanterol 25 mcg/dose inhalation powder (Breo Ellipta) linaclotide 145 mcg capsule 145 mcg PO DAILY 10/28/23 10/28/23 10/28/23 History (Linzess) Allergies Allergy/AdvReac Type Severity Reaction Status Date / Time lisinopril Allergy Intermediate Swelling Verified 10/28/23 08:11 sulfamethoxazole Allergy Mild Abdominal Verified 10/28/23 08:11 [From Bactrim] Pain trimethoprim [From Bactrim] Allergy Mild Abdominal Verified 10/28/23 08:11 Pain ibuprofen Allergy unknown Verified 10/28/23 08:11 [facility] Anesthesia Medical History Anxiety ASHD (arteriosclerotic heart disease) Asthma CAD (coronary artery disease) CHF (congestive heart failure) CLL (chronic lymphocytic leukemia) COPD (chronic obstructive pulmonary disease) Depression Diabetes GERD (gastroesophageal reflux disease) HTN (hypertension) Hypercholesterolemia Hyperlipidemia Hypothyroidism Leukemia Major depressive disorder Mitral stenosis Mitral valve disease Morbid obesity Myocardial infarction Pulmonary hypertension Sleep apnea Smoker Surgical History History of dilatation and curettage History of PTCA Hx of cholecystectomy Hx of colonoscopy Hx of total hysterectomy S/P cholecystectomy Family History Denies family history of Colon cancer Ovarian cancer Diabetes Heart disease Hypercholesteremia Breast cancer Hypertension Uterine cancer Thyroid disease Stroke Social History Smoking and tobacco/nicotine status: former use of tobacco/nicotine Quit status (tobacco/nicotine): has quit using Year quit tobacco: Quit smoking January 2023 Former quit date comment: snoked for 30+ years Alcohol intake: never Substance/Drug Use: never Data Anesthesia Cardiac Studies: Sestamibi Stress Test (Cardiology) 11/24
--- NOTE | 2023-10-30 07:17 | PC.NURSE ---
PRIOR TO PROCEDURE START BRUISE NOTED ON LEFT AND RIGHT LOWER BACK OF PT
[2023-10-30 08:11] VITALS: BP 109/78; PULSE 100; RESP 18; TEMP 36.1; O2SAT 92
[2023-10-30 08:20] VITALS: BP 119/88; PULSE 106; RESP 18; O2SAT 94
[2023-10-30 08:30] VITALS: BP 119/86; PULSE 79; RESP 18; O2SAT 94
[2023-10-30 08:40] VITALS: BP 117/63; PULSE 87; RESP 18; O2SAT 95
[2023-10-30] MEDS: sodium chloride 0.9% 1,000 ML 30 ML IV (08:43)
--- NOTE | 2023-10-30 09:02 | ANE.PACU2 ---
Inpatient post-anesthesia follow up: Airway intact: Yes Vital signs: Temperature 97.0 F Pulse Rate 87 Respiratory Rate 18 Blood Pressure 117/63 Pulse Oximetry 95 Oxygen Delivery Me thod Nasal Cannula Oxygen Flow Rate 2 Fraction of Inspir ed Oxygen Hydration adequate: Yes Nausea and vomiting: No Pain level: 1 Mental status: Baseline
== END 2023-10-30 09:02 | disposition home or self-care (01) ==
PROVIDERS: PCP Registered Nurse; Visit Provider Surgery
PROC: 0DJ08ZZ Inspection of Upper Intestinal Tract, Via Natural or Artificial Opening Endoscopic (ICD-10-PCS; CPT 43235; principal; 2023-10-30 07:00)
PROC: 0DJD8ZZ Inspection of Lower Intestinal Tract, Via Natural or Artificial Opening Endoscopic (ICD-10-PCS; CPT 45378; 2023-10-30 07:00)
DX: Z12.11 Encounter for screening for malignant neoplasm of colon (principal); K21.9 Gastro-esophageal reflux disease without esophagitis; K57.30 Diverticulosis of large intestine without perforation or abscess without bleeding; K64.8 Other hemorrhoids; J44.9 Chronic obstructive pulmonary disease, unspecified; G47.30 Sleep apnea, unspecified; Z99.81 Dependence on supplemental oxygen; I48.91 Unspecified atrial fibrillation; I25.10 Atherosclerotic heart disease of native coronary artery without angina pectoris; E11.22 Type 2 diabetes mellitus with diabetic chronic kidney disease; I13.0 Hypertensive heart and chronic kidney disease with heart failure and stage 1 through stage 4 chronic kidney disease, or unspecified chronic kidney disease; N18.30 Chronic kidney disease, stage 3 unspecified; I50.9 Heart failure, unspecified; I25.2 Old myocardial infarction; Z95.5 Presence of coronary angioplasty implant and graft; E03.9 Hypothyroidism, unspecified; E66.01 Morbid (severe) obesity due to excess calories; Z68.42 Body mass index [BMI] 45.0-49.9, adult; Z87.891 Personal history of nicotine dependence
CPT/HCPCS: 43239; 45331; 88305; J2704; J3010; J7030

== ENCOUNTER 2023-11-25 09:26 | Oncology outpatient (recurring) (ONCR) | payer MEDICARE, MEDICAID, SELFPAY ==
[2023-11-25 10:22] VITALS: BP 116/72; PULSE 88; RESP 16; TEMP 35.9; O2SAT 90
[2023-11-25 10:42] LABS: Basophils # 0.1 10^3/uL (0.0-0.1); Basophils % 0.3 %; Eosinophils # 0.2 10^3/uL (0.0-0.8); Eosinophils % 0.5 %; Hematocrit 37.2 % (36-47); Lymphocytes # 29.9 10^3/uL (0.8-4.8); Lymphocytes % 65.3 %; Mean Corpuscular HGB Conc 28.2 g/dL (30-55); Mean Corpuscular Hemoglobin 21.2 pg (27-33); Mean Platelet Volume 11.6 fL (7.4-10.4); Monocytes # 2.7 10^3/uL (0.2-0.9); Monocytes % 5.9 %; Neutrophils # 12.54 10^3/uL (1.8-7.7); Neutrophils % 27.3 %; Nucleated Red Blood Cells % 0 %; Platelet Count 290 10^3/cmm (157-399); Red Blood Count 4.96 10^6/uL (3.85-5.65); Red Cell Distribution Width 17.7 % (12.1-15.1)
[2023-11-25 10:59] LABS: Alanine Aminotransferase 19 U/L (0-33); Alkaline Phosphatase 76 U/L (35-105); Anion Gap 17.4 (5-19); Aspartate Amino Transferase 17 U/L (0-32); Blood Urea Nitrogen 62 mg/dL (8-23); Calcium 9.4 mg/dL (8.5-10.5); Carbon Dioxide 35 mmol/L (22-29); Chloride 89 mmol/L (98-107); Globulin 2.5 g/dL (1.3-4.6); Glomerular Filtration Rate 26.4 mL/min (90-130); Glucose 163 mg/dL (65-115); Lactate Dehydrogenase 239 U/L (135-214); Osmolality Calculated 305 mOsm/kg (285-295); Potassium 4.4 mmol/L (3.5-5.1); Sodium 137 mmol/L (136-145); Total Protein 6.5 g/dL (6.6-8.7)
[2023-11-25 11:41] LABS: Slide Review Slide Review Perform
[2023-11-25 11:42] LABS: White Blood Count 45.87 10^3/uL (3.29-11.43)
[2023-11-25 14:14] LABS: Ferritin 51 ng/mL (15-150); Iron 27 ug/dL (37-145); Percent Saturation 5.9 % (20-50); Total Iron Binding Capacity 451 mcg/dl; Unsaturated Iron Binding 424 ug/dL (112-347)
[2023-11-25 14:31] LABS: Vitamin B12 340 pg/mL (232-1245)
== END 2023-12-18 23:59 | disposition home or self-care (01) ==
PROVIDERS: Internal Medicine Hematology & Oncology; Nurse Practitioner Family; PCP Registered Nurse; Visit Provider Internal Medicine Medical Oncology
DX: C91.10 Chronic lymphocytic leukemia of B-cell type not having achieved remission (principal); R74.02 Elevation of levels of lactic acid dehydrogenase [LDH]; F17.210 Nicotine dependence, cigarettes, uncomplicated; Z79.899 Other long term (current) drug therapy
CPT/HCPCS: 36415; 80053; 82607; 82728; 83540; 83550; 83615; 85025; 99214

== ENCOUNTER → 2023-11-26 11:17 | Outpatient (BNVA) | payer MEDICARE, MEDICAID, SELFPAY | PROVIDERS: PCP Registered Nurse; Visit Provider Surgery | DX: Z09 Encounter for follow-up examination after completed treatment for conditions other than malignant neoplasm (principal); K31.819 Angiodysplasia of stomach and duodenum without bleeding; K59.00 Constipation, unspecified; I96 Gangrene, not elsewhere classified; L97.822 Non-pressure chronic ulcer of other part of left lower leg with fat layer exposed; L97.812 Non-pressure chronic ulcer of other part of right lower leg with fat layer exposed | CPT/HCPCS: 97597; 97598; 99213 ==

== ENCOUNTER 2024-01-30 11:48 | Outpatient (CLI) | payer MEDICARE, MEDICAID, SELFPAY ==
--- NOTE | 2024-01-30 11:54 | US_ITS ---
WS: [id number] ULTRASOUND RENAL TECHNIQUE: Ultrasound examination of both kidneys. CLINICAL INFORMATION: STAGE 3B CHRONIC KIDNEY DZ COMPARISON: None. FINDINGS: Technically difficult study due to body habitus. RIGHT: Right kidney is normal in size and appearance. Echogenicity: Normal. Cortical thickness: 1.0 cm; Normal. Hydronephrosis: None. Perinephric fluid: None. Right kidney measures: 9.9 cm x 3.8 cm x 5.7 cm. LEFT: Left kidney is normal in size and appearance. Echogenicity: Normal. Cortical thickness: 1.3 cm; Normal. Hydronephrosis: None. Perinephric fluid: None. Left kidney measures: 10.9 cm x 4.4 cm x 3.0 cm. Normal visualized aorta. Bladder is incompletely distended and normal in appearance IMPRESSION: Technically difficult study. 1. No hydronephrosis in either kidney. 2. Bladder is normal in appearance 3. No other suspicious findings.
== END 2024-01-30 11:49 | disposition home or self-care (01) ==
LOC: RAD 11:48
PROVIDERS: PCP Registered Nurse; Visit Provider Internal Medicine Nephrology
DX: N18.32 Chronic kidney disease, stage 3b (principal)
CPT/HCPCS: 76770

== ENCOUNTER 2024-02-26 13:50 | Oncology outpatient (recurring) (ONCR) | payer MEDICARE, MEDICAID, SELFPAY ==
[2024-02-26 14:51] LABS: Basophils # 0.2 10^3/uL (0.0-0.1); Basophils % 0.4 %; Eosinophils # 0.5 10^3/uL (0.0-0.8); Eosinophils % 0.9 %; Hematocrit 40.7 % (36-47); Lymphocytes # 41.1 10^3/uL (0.8-4.8); Lymphocytes % 76.3 %; Mean Corpuscular Hemoglobin 21.3 pg (27-33); Mean Corpuscular Volume 73.6 fl (85-98); Monocytes # 3.9 10^3/uL (0.2-0.9); Monocytes % 7.3 %; Neutrophils # 8.02 10^3/uL (1.8-7.7); Neutrophils % 14.9 %; Nucleated Red Blood Cells % 0 %; Platelet Count 204 10^3/cmm (157-399); Red Blood Count 5.53 10^6/uL (3.85-5.65); Red Cell Distribution Width 19.1 % (12.1-15.1)
[2024-02-26 14:58] LABS: Reticulocyte % 1.2 % (0.5-2.0)
[2024-02-26 15:10] LABS: White Blood Count 53.79 10^3/uL (3.29-11.43)
[2024-02-26 15:14] LABS: Slide Review Slide Review Perform
[2024-02-26 15:18] LABS: Alanine Aminotransferase 13 U/L (0-33); Albumin Level 4.6 g/dL (3.5-5.2); Alkaline Phosphatase 98 U/L (35-105); Anion Gap 15.1 (5-19); Aspartate Amino Transferase 16 U/L (0-32); Blood Urea Nitrogen 53 mg/dL (8-23); Calcium 10.1 mg/dL (8.5-10.5); Carbon Dioxide 29 mmol/L (22-29); Chloride 100 mmol/L (98-107); Ferritin 40 ng/mL (15-150); Globulin 2.7 g/dL (1.3-4.6); Glomerular Filtration Rate 18.4 mL/min (90-130); Glucose 105 mg/dL (65-115); Iron 25 ug/dL (37-145); Osmolality Calculated 305 mOsm/kg (285-295); Percent Saturation 5.2 % (20-50); Potassium 4.1 mmol/L (3.5-5.1); Sodium 140 mmol/L (136-145); Total Bilirubin 0.6 mg/dL (0.15-1.2); Total Iron Binding Capacity 477 mcg/dl; Total Protein 7.3 g/dL (6.6-8.7); Unsaturated Iron Binding 452 ug/dL (112-347); Uric Acid 11.9 mg/dL (2.4-5.7); Vitamin B12 385 pg/mL (232-1245)
[2024-02-26 15:28] LABS: Folate Level 9.6 ng/mL (4.8-37.3)
[2024-02-29 12:55] LABS: Soluble Transferrin Receptor 5.98 mg/L (0.76-1.76)
[2024-03-10 10:36] LABS: CLL Prognostic Panel (BBPL) See Report
== END 2024-03-17 23:59 | disposition home or self-care (01) ==
PROVIDERS: Internal Medicine; Nurse Practitioner Family; PCP Registered Nurse; Visit Provider Internal Medicine Medical Oncology
DX: C91.10 Chronic lymphocytic leukemia of B-cell type not having achieved remission (principal); R74.02 Elevation of levels of lactic acid dehydrogenase [LDH]; F17.210 Nicotine dependence, cigarettes, uncomplicated; Z79.899 Other long term (current) drug therapy
CPT/HCPCS: 36415; 80053; 81263; 82232; 82607; 82728; 82746; 83540; 83550; 84238; 84550; 85025; 85045; 88184; 88185; 88264; 88271; 88367; 88374; 99214

== ENCOUNTER 2024-06-03 13:41 | Oncology outpatient (recurring) (ONCR) | payer MEDICARE, MEDICAID, SELFPAY ==
[2024-06-03 14:23] LABS: Basophils # 0.2 10^3/uL (0.0-0.1); Basophils % 0.2 %; Eosinophils # 0.4 10^3/uL (0.0-0.8); Eosinophils % 0.5 %; Hematocrit 43.5 % (36-47); Lymphocytes # 66.9 10^3/uL (0.8-4.8); Lymphocytes % 81.8 %; Mean Corpuscular Hemoglobin 22.2 pg (27-33); Mean Corpuscular Volume 76.7 fl (85-98); Mean Platelet Volume 11.4 fL (7.4-10.4); Monocytes # 6.2 10^3/uL (0.2-0.9); Monocytes % 7.6 %; Neutrophils # 7.71 10^3/uL (1.8-7.7); Neutrophils % 9.4 %; Nucleated Red Blood Cells % 0 %; Platelet Count 202 10^3/cmm (157-399); Red Blood Count 5.67 10^6/uL (3.85-5.65); Red Cell Distribution Width 19.5 % (12.1-15.1)
[2024-06-03 14:51] LABS: Alanine Aminotransferase 16 U/L (0-33); Albumin Level 4.5 g/dL (3.5-5.2); Alkaline Phosphatase 119 U/L (35-105); Anion Gap 16.5 (5-19); Aspartate Amino Transferase 22 U/L (0-32); Blood Urea Nitrogen 38 mg/dL (8-23); Calcium 10.1 mg/dL (8.5-10.5); Carbon Dioxide 30 mmol/L (22-29); Chloride 97 mmol/L (98-107); Ferritin 44 ng/mL (15-150); Globulin 2.9 g/dL (1.3-4.6); Glomerular Filtration Rate 19.3 mL/min (90-130); Glucose 121 mg/dL (65-115); Iron 45 ug/dL (37-145); Lactate Dehydrogenase 218 U/L (135-214); Osmolality Calculated 298 mOsm/kg (285-295); Percent Saturation 10.7 % (20-50); Potassium 4.5 mmol/L (3.5-5.1); Sodium 139 mmol/L (136-145); Total Bilirubin 0.8 mg/dL (0.15-1.2); Total Iron Binding Capacity 418 mcg/dl; Total Protein 7.4 g/dL (6.6-8.7); Unsaturated Iron Binding 373 ug/dL (112-347)
[2024-06-03 15:19] LABS: Add RBC Morph Yes; White Blood Count 81.82 10^3/uL (3.29-11.43)
[2024-06-03 15:20] LABS: Hypochromasia 1+; Microcytosis 1+; Pathology Refferal No; Poikilocytosis 1+; RBC Morph Comp No
== END 2024-06-17 23:59 | disposition home or self-care (01) ==
PROVIDERS: PCP Registered Nurse; Visit Provider Internal Medicine Medical Oncology
DX: C91.10 Chronic lymphocytic leukemia of B-cell type not having achieved remission (principal); R74.02 Elevation of levels of lactic acid dehydrogenase [LDH]; Z79.899 Other long term (current) drug therapy; D64.9 Anemia, unspecified
CPT/HCPCS: 36415; 80053; 82728; 83540; 83550; 83615; 85025; 99214

== ENCOUNTER 2024-07-01 12:30 | Oncology outpatient (recurring) (ONCR) | payer MEDICARE, MEDICAID, SELFPAY ==
[2024-06-18 14:53] VITALS: BP 100/68; PULSE 92; RESP 20; TEMP 36.3; O2SAT 96
[2024-06-18] MEDS: sodium chloride 0.9% 250 ML 75 ML IV (15:00)
[2024-06-18] MEDS: iron sucrose 200 MG in sodium chloride 0.9% (100 ml) 100 ML 220 MG IV (15:04)
[2024-06-22 11:52] VITALS: BP 109/63; PULSE 76; RESP 20; TEMP 35.6; O2SAT 90
[2024-06-22] MEDS: iron sucrose 200 MG in sodium chloride 0.9% (100 ml) 100 ML 220 MG IV (12:02)
[2024-06-22] MEDS: sodium chloride 0.9% 250 ML 75 ML IV (12:02)
[2024-06-22 12:54] VITALS: BP 134/61; PULSE 69; RESP 18; O2SAT 92
[2024-06-24 13:03] VITALS: BP 114/65; PULSE 65; RESP 16; TEMP 37.4; O2SAT 95
[2024-06-24] MEDS: iron sucrose 200 MG in sodium chloride 0.9% (100 ml) 100 ML 220 MG IV (13:20)
[2024-06-24 14:00] VITALS: BP 127/67; PULSE 82; RESP 20; TEMP 37.2; O2SAT 92
[2024-06-29] MEDS: iron sucrose 200 MG in sodium chloride 0.9% (100 ml) 100 ML 220 MG IV (13:25)
[2024-06-29 14:16] VITALS: BP 126/74; PULSE 65; RESP 17; TEMP 35.7; O2SAT 95
[2024-07-01 12:40] VITALS: BP 110/58; PULSE 60; RESP 16; TEMP 36.5; O2SAT 94
[2024-07-01] MEDS: iron sucrose 200 MG in sodium chloride 0.9% (100 ml) 100 ML 220 MG IV (12:41)
[2024-07-01 15:46] VITALS: BP 128/72; PULSE 74; RESP 16; TEMP 36.4; O2SAT 96
== END 2024-07-18 23:59 | disposition home or self-care (01) ==
PROVIDERS: PCP Registered Nurse; Visit Provider Internal Medicine Medical Oncology
DX: C91.10 Chronic lymphocytic leukemia of B-cell type not having achieved remission (principal); Z53.9 Procedure and treatment not carried out, unspecified reason
CPT/HCPCS: 96365; J1756; J7050

== ENCOUNTER 2024-07-30 08:09 | Oncology outpatient (recurring) (ONCR) | payer MEDICARE, SELFPAY ==
[2024-07-30 08:25] LABS: Hematocrit 42.7 % (36-47); Mean Corpuscular HGB Conc 29.5 g/dL (30-55); Mean Corpuscular Hemoglobin 24.4 pg (27-33); Mean Corpuscular Volume 82.6 fl (85-98); Mean Platelet Volume 11.2 fL (7.4-10.4); Platelet Count 143 10^3/cmm (157-399); Red Blood Count 5.17 10^6/uL (3.85-5.65); Red Cell Distribution Width 20.4 % (12.1-15.1)
[2024-07-30 08:42] LABS: Alanine Aminotransferase 13 U/L (0-33); Albumin Level 4.4 g/dL (3.5-5.2); Alkaline Phosphatase 102 U/L (35-105); Anion Gap 17.2 (5-19); Aspartate Amino Transferase 18 U/L (0-32); Blood Urea Nitrogen 52 mg/dL (8-23); Calcium 9.5 mg/dL (8.5-10.5); Carbon Dioxide 24 mmol/L (22-29); Chloride 104 mmol/L (98-107); Ferritin 174 ng/mL (15-150); Globulin 2.3 g/dL (1.3-4.6); Glomerular Filtration Rate 24.9 mL/min (90-130); Glucose 107 mg/dL (65-115); Iron 57 ug/dL (37-145); Lactate Dehydrogenase 231 U/L (135-214); Osmolality Calculated 305 mOsm/kg (285-295); Percent Saturation 17.9 % (20-50); Potassium 5.2 mmol/L (3.5-5.1); Sodium 140 mmol/L (136-145); Total Bilirubin 0.6 mg/dL (0.15-1.2); Total Iron Binding Capacity 318 mcg/dl; Total Protein 6.7 g/dL (6.6-8.7); Unsaturated Iron Binding 261 ug/dL (112-347)
[2024-07-30 08:48] LABS: White Blood Count 114.24 10^3/uL (3.29-11.43)
[2024-07-30 08:52] LABS: Slide Review Slide Review Perform
[2024-07-30 08:53] LABS: Absolute Eosinophils 1.1 10^3/cmm (0.0-0.7); Absolute Segmented Neutrophil 10.3 10/cmm (1.6-7.1); Eosinophils 1 %; Lymphocytes 78 %; Lymphocytes Absolute 101.7 10^3/cmm (1.2-3.4); Segmented Neutrophils 9 %; Total Cells Counted 100 (0-100)
[2024-07-30 08:54] LABS: Absolute Neutrophil 10.3 10^3/cmm (1.4-6.5); Anisocytosis 1+; Platelet Estimate Normal (Normal)
[2024-07-30 08:55] LABS: Smudge Cells 1+
== END 2024-08-17 23:59 | disposition home or self-care (01) ==
PROVIDERS: Nurse Practitioner Family; PCP Registered Nurse; Visit Provider Internal Medicine Medical Oncology
DX: C91.10 Chronic lymphocytic leukemia of B-cell type not having achieved remission (principal); Z79.899 Other long term (current) drug therapy; D50.9 Iron deficiency anemia, unspecified; Z87.891 Personal history of nicotine dependence; I13.0 Hypertensive heart and chronic kidney disease with heart failure and stage 1 through stage 4 chronic kidney disease, or unspecified chronic kidney disease; E11.22 Type 2 diabetes mellitus with diabetic chronic kidney disease; N18.9 Chronic kidney disease, unspecified; I50.9 Heart failure, unspecified
CPT/HCPCS: 36415; 80053; 82728; 83540; 83550; 83615; 85007; 85025; 99214

== ENCOUNTER 2024-09-03 14:11 | Oncology outpatient (recurring) (ONCR) | payer MEDICARE, SELFPAY ==
[2024-09-03 15:46] LABS: Hematocrit 44.3 % (36-47); Mean Corpuscular HGB Conc 29.6 g/dL (30-55); Mean Corpuscular Volume 84.4 fl (85-98); Mean Platelet Volume 12.2 fL (7.4-10.4); Platelet Count 151 10^3/cmm (157-399); Red Blood Count 5.25 10^6/uL (3.85-5.65); Red Cell Distribution Width 18.7 % (12.1-15.1)
[2024-09-03 15:48] LABS: White Blood Count 135.72 10^3/uL (3.29-11.43)
[2024-09-03 15:49] LABS: Slide Review Slide Review Perform
[2024-09-03 15:53] LABS: Absolute Eosinophils 1.4 10^3/cmm (0.0-0.7); Absolute Neutrophil 13.6 10^3/cmm (1.4-6.5); Absolute Segmented Neutrophil 13.6 10/cmm (1.6-7.1); Eosinophils 1 %; Lymphocytes 80 %; Lymphocytes Absolute 118.1 10^3/cmm (1.2-3.4); Monocytes Absolute 2.7 10^3/cmm (0.1-0.6); Platelet Estimate Normal (Normal); Segmented Neutrophils 10 %; Total Cells Counted 100 (0-100)
[2024-09-03 15:54] LABS: Anisocytosis 1+; Smudge Cells 2+
== END 2024-09-17 23:59 | disposition home or self-care (01) ==
PROVIDERS: PCP Registered Nurse; Visit Provider Internal Medicine Medical Oncology
DX: D50.9 Iron deficiency anemia, unspecified
CPT/HCPCS: 36415; 85007; 85025

== ENCOUNTER → 2024-09-09 16:04 | Outpatient (BNVA) | payer MEDICARE, SELFPAY | PROVIDERS: PCP Registered Nurse; Visit Provider Internal Medicine Cardiovascular Disease | DX: R00.1 Bradycardia, unspecified (principal); I49.1 Atrial premature depolarization; I49.3 Ventricular premature depolarization; I49.2 Junctional premature depolarization; R07.9 Chest pain, unspecified | CPT/HCPCS: 93005; 99214 ==

== ENCOUNTER 2024-10-14 14:24 | Oncology outpatient (recurring) (ONCR) | payer MEDICARE, SELFPAY ==
[2024-10-14 14:47] LABS: Hematocrit 41.5 % (36-47); Mean Corpuscular HGB Conc 29.4 g/dL (30-55); Mean Corpuscular Hemoglobin 25.6 pg (27-33); Mean Platelet Volume 12.5 fL (7.4-10.4); Platelet Count 116 10^3/cmm (157-399); Red Blood Count 4.77 10^6/uL (3.85-5.65)
[2024-10-14 15:44] LABS: Absolute Segmented Neutrophil 12.3 10/cmm (1.6-7.1); Eosinophils 0 %; Lymphocytes 84 %; Lymphocytes Absolute 123.2 10^3/cmm (1.2-3.4); Monocytes Absolute 1.4 10^3/cmm (0.1-0.6); Segmented Neutrophils 9 %; Slide Review Slide Review Perform; Total Cells Counted 100 (0-100)
[2024-10-14 15:45] LABS: Absolute Neutrophil 12.3 10^3/cmm (1.4-6.5); Platelet Estimate Decreased (Normal); Smudge Cells 1+
== END 2024-10-17 23:59 | disposition home or self-care (01) ==
LOC: ONCMED 14:25
PROVIDERS: Internal Medicine Medical Oncology; PCP Registered Nurse; Visit Provider Internal Medicine
DX: D50.9 Iron deficiency anemia, unspecified (principal)
CPT/HCPCS: 36415; 85007; 85025

== ENCOUNTER 2024-10-29 10:51 | Oncology outpatient (recurring) (ONCR) | payer MEDICARE, SELFPAY ==
[2024-10-29 11:17] LABS: Hematocrit 40.1 % (36-47); Mean Corpuscular HGB Conc 28.9 g/dL (30-55); Mean Corpuscular Hemoglobin 25.3 pg (27-33); Mean Corpuscular Volume 87.4 fl (85-98); Mean Platelet Volume 11.4 fL (7.4-10.4); Platelet Count 179 10^3/cmm (157-399); Red Blood Count 4.59 10^6/uL (3.85-5.65); Red Cell Distribution Width 16.4 % (12.1-15.1)
[2024-10-29 11:35] LABS: Alanine Aminotransferase 12 U/L (0-33); Albumin Level 4.3 g/dL (3.5-5.2); Alkaline Phosphatase 100 U/L (35-105); Anion Gap 14.3 (5-19); Aspartate Amino Transferase 18 U/L (0-32); Blood Urea Nitrogen 42 mg/dL (8-23); Calcium 9.7 mg/dL (8.5-10.5); Carbon Dioxide 33 mmol/L (22-29); Chloride 97 mmol/L (98-107); Ferritin 112 ng/mL (15-150); Globulin 2.3 g/dL (1.3-4.6); Glomerular Filtration Rate 24.9 mL/min (90-130); Glucose 119 mg/dL (65-115); Iron 49 ug/dL (37-145); Lactate Dehydrogenase 258 U/L (135-214); Osmolality Calculated 302 mOsm/kg (285-295); Percent Saturation 12.8 % (20-50); Potassium 4.3 mmol/L (3.5-5.1); Sodium 140 mmol/L (136-145); Total Bilirubin 0.9 mg/dL (0.15-1.2); Total Iron Binding Capacity 381 mcg/dl; Total Protein 6.6 g/dL (6.6-8.7); Unsaturated Iron Binding 332 ug/dL (112-347)
[2024-10-29 11:39] LABS: Absolute Eosinophils 1.2 10^3/cmm (0.0-0.7); Absolute Segmented Neutrophil 4.7 10/cmm (1.6-7.1); Band Neutrophils Absolute 1.2 10^3/cmm (0.0-1.2); Eosinophils 1 %; Lymphocytes 11 %; Lymphocytes Absolute 111.4 10^3/cmm (1.2-3.4); Segmented Neutrophils 4 %; Slide Review Slide Review Perform; Total Cells Counted 100 (0-100)
[2024-10-29 11:40] LABS: Absolute Neutrophil 5.9 10^3/cmm (1.4-6.5); Platelet Estimate Decreased (Normal)
[2024-10-29 11:42] LABS: White Blood Count 118.47 10^3/uL (3.29-11.43)
[2024-10-29] MEDS: sodium chloride 0.9% 250 ML 75 ML IV (13:45)
[2024-10-29] MEDS: ferric gluconate 125 MG in sodium chloride 0.9% (100 ml) 100 ML 110 MG IV (13:48)
[2024-10-29 15:00] VITALS: BP 110/63; PULSE 64; RESP 18; TEMP 37.1; O2SAT 97
== END 2024-11-17 23:59 | disposition home or self-care (01) ==
PROVIDERS: Internal Medicine Medical Oncology; PCP Registered Nurse; Visit Provider Internal Medicine
DX: C91.10 Chronic lymphocytic leukemia of B-cell type not having achieved remission; E61.1 Iron deficiency
CPT/HCPCS: 36415; 80053; 82728; 83540; 83550; 83615; 85007; 85025; 96365; 99214; J2916; J7050

== ENCOUNTER 2024-12-01 12:03 | Oncology outpatient (recurring) (ONCR) | payer MEDICARE, SELFPAY ==
[2024-12-01 12:40] LABS: Basophils # 0.2 10^3/uL (0.0-0.1); Basophils % 0.2 %; Eosinophils # 0.5 10^3/uL (0.0-0.8); Eosinophils % 0.4 %; Hematocrit 42.1 % (36-47); Lymphocytes % 87.4 %; Mean Corpuscular HGB Conc 28.5 g/dL (30-55); Mean Corpuscular Hemoglobin 24.7 pg (27-33); Mean Corpuscular Volume 86.8 fl (85-98); Mean Platelet Volume 12.4 fL (7.4-10.4); Monocytes # 8.9 10^3/uL (0.2-0.9); Monocytes % 6.9 %; Neutrophils # 6.29 10^3/uL (1.8-7.7); Neutrophils % 4.8 %; Nucleated Red Blood Cells % 0 %; Platelet Count 136 10^3/cmm (157-399); Red Blood Count 4.85 10^6/uL (3.85-5.65); Red Cell Distribution Width 15.3 % (12.1-15.1)
[2024-12-01 13:03] LABS: Alanine Aminotransferase 11 U/L (0-33); Albumin Level 4.5 g/dL (3.5-5.2); Alkaline Phosphatase 117 U/L (35-105); Chloride 100 mmol/L (98-107); Ferritin 110 ng/mL (15-150); Lactate Dehydrogenase 251 U/L (135-214); Potassium 4.6 mmol/L (3.5-5.1); Sodium 140 mmol/L (136-145)
[2024-12-01 13:24] LABS: Lymphocytes # 113.4 10^3/uL (0.8-4.8); White Blood Count 129.68 10^3/uL (3.29-11.43)
[2024-12-01 13:27] LABS: Slide Review Slide Review Perform
[2024-12-01 13:30] LABS: Anion Gap 12.6 (5-19); Aspartate Amino Transferase 20 U/L (0-32); Blood Urea Nitrogen 26 mg/dL (8-23); Carbon Dioxide 32 mmol/L (22-29); Creatinine Clr Calc Pharmacy 41.3458; Globulin 2.2 g/dL (1.3-4.6); Glomerular Filtration Rate 28.1 mL/min (90-130); Glucose 83 mg/dL (65-115); Iron 43 ug/dL (37-145); Osmolality Calculated 294 mOsm/kg (285-295); Percent Saturation 10.9 % (20-50); Total Bilirubin 0.8 mg/dL (0.15-1.2); Total Iron Binding Capacity 391 mcg/dl; Total Protein 6.7 g/dL (6.6-8.7); Unsaturated Iron Binding 348 ug/dL (112-347)
== END 2024-12-18 23:59 | disposition home or self-care (01) ==
PROVIDERS: Nurse Practitioner Family; PCP Registered Nurse; Visit Provider Internal Medicine Medical Oncology
DX: C91.10 Chronic lymphocytic leukemia of B-cell type not having achieved remission (principal); E61.1 Iron deficiency
CPT/HCPCS: 36415; 80053; 82728; 83540; 83550; 83615; 85025; 99214

== ENCOUNTER 2025-05-17 07:30 | Oncology outpatient (recurring) (ONCR) | payer MEDICARE, SELFPAY ==
[2025-04-27 09:58] LABS: Hematocrit 37.2 % (36-47); Mean Corpuscular HGB Conc 26.9 g/dL (30-55); Mean Corpuscular Hemoglobin 24.4 pg (27-33); Mean Corpuscular Volume 90.7 fl (85-98); Mean Platelet Volume 11.4 fL (7.4-10.4); Platelet Count 127 10^3/cmm (157-399); Red Cell Distribution Width 17.8 % (12.1-15.1)
[2025-04-27 10:15] LABS: Alanine Aminotransferase 8 U/L (0-33); Albumin Level 4.2 g/dL (3.5-5.2); Alkaline Phosphatase 105 U/L (35-105); Anion Gap 18.1 (5-19); Aspartate Amino Transferase 17 U/L (0-32); Blood Urea Nitrogen 39 mg/dL (8-23); Calcium 9.1 mg/dL (8.5-10.5); Carbon Dioxide 24 mmol/L (22-29); Chloride 104 mmol/L (98-107); Globulin 1.9 g/dL (1.3-4.6); Glomerular Filtration Rate 22.3 mL/min (90-130); Glucose 142 mg/dL (65-115); Osmolality Calculated 304 mOsm/kg (285-295); Potassium 5.1 mmol/L (3.5-5.1); Sodium 141 mmol/L (136-145); Total Protein 6.1 g/dL (6.6-8.7)
[2025-04-27 10:31] LABS: Total Bilirubin 0.5 mg/dL (0.15-1.2)
[2025-04-27 10:52] LABS: Slide Review Slide Review Perform
[2025-04-27 10:53] LABS: Absolute Neutrophil 13.2 10^3/cmm (1.4-6.5); Absolute Segmented Neutrophil 13.2 10/cmm (1.6-7.1); Eosinophils 0 %; Lymphocytes 72 %; Lymphocytes Absolute 248.5 10^3/cmm (1.2-3.4); Platelet Estimate Normal (Normal); Segmented Neutrophils 5 %; Total Cells Counted 100 (0-100)
[2025-04-27 10:54] LABS: Giant Platelets Trace; Poikilocytosis Trace; Smudge Cells 1+
[2025-04-27 12:37] LABS: INR 1.06 (0.8-1.2)
[2025-04-27 13:02] LABS: 25 Hydroxy Vitamin D 80 ng/mL (30-100); Ferritin 136 ng/mL (15-150); Thyroid Stimulating Hormone 1.06 uIU/mL (0.27-4.20)
[2025-04-27 13:35] LABS: Lactate Dehydrogenase 285 U/L (135-214)
[2025-05-17 07:26] LABS: Basophils # 0.5 10^3/uL (0.0-0.1); Basophils % 0.2 %; Eosinophils # 0.8 10^3/uL (0.0-0.8); Eosinophils % 0.3 %; Hematocrit 34.1 % (36-47); Lymphocytes % 83.5 %; Mean Corpuscular HGB Conc 27.6 g/dL (30-55); Mean Corpuscular Hemoglobin 24.4 pg (27-33); Mean Corpuscular Volume 88.6 fl (85-98); Mean Platelet Volume 12.6 fL (7.4-10.4); Monocytes # 31.1 10^3/uL (0.2-0.9); Neutrophils # 9.23 10^3/uL (1.8-7.7); Neutrophils % 3.5 %; Nucleated Red Blood Cells % 0 %; Platelet Count 98 10^3/cmm (157-399); Red Blood Count 3.85 10^6/uL (3.85-5.65); Red Cell Distribution Width 17.2 % (12.1-15.1)
[2025-05-17 07:43] LABS: Alanine Aminotransferase 7 U/L (0-33); Albumin Level 4.1 g/dL (3.5-5.2); Alkaline Phosphatase 99 U/L (35-105); Anion Gap 17.5 (5-19); Aspartate Amino Transferase 19 U/L (0-32); Blood Urea Nitrogen 45 mg/dL (8-23); Calcium 8.9 mg/dL (8.5-10.5); Carbon Dioxide 25 mmol/L (22-29); Chloride 100 mmol/L (98-107); Globulin 1.9 g/dL (1.3-4.6); Glomerular Filtration Rate 21.2 mL/min (90-130); Glucose 106 mg/dL (65-115); Osmolality Calculated 296 mOsm/kg (285-295); Potassium 5.5 mmol/L (3.5-5.1); Sodium 137 mmol/L (136-145); Total Bilirubin 0.7 mg/dL (0.15-1.2); Uric Acid 12.6 mg/dL (2.4-5.7)
[2025-05-17 08:01] LABS: Hepatitis B Core AB, Total Non-Reactive (Nonreactive); Hepatitis B Surface AB < 3.5 (11.5-1000); Hepatitis B Surface Antigen Non-Reactive (Nonreactive)
[2025-05-17 08:09] LABS: Lymphocytes # 215.6 10^3/uL (0.8-4.8); Slide Review Slide Review Perform; White Blood Count 258.34 10^3/uL (3.29-11.43)
[2025-05-17 08:34] VITALS: BP 109/51; PULSE 58; TEMP 36.1; O2SAT 92
[2025-05-17] MEDS: acetaminophen 325 mg Tablet 650 MG PO (08:53)
[2025-05-17] MEDS: sodium chloride 0.9% 250 ML 75 ML IV (08:54)
[2025-05-17] MEDS: diphenhydrAMINE 50 mg/mL SDV 1mL IVP (08:59)
[2025-05-17] MEDS: dexamethasone 20 MG in sodium chloride 0.9% 50 ML 188 MG IV (09:10)
[2025-05-17] MEDS: obinutuzumab 100 MG in sodium chloride 0.9% (100 ml) 100 ML 26 MG IV (10:01)
[2025-05-17] MEDS: sodium chloride 0.9% 1,000 ML 250 ML IV (11:02)
[2025-05-17] MEDS: ondansetron 2 mg/ML SDV 2 mL 8 MG IVP (11:10)
[2025-05-17] MEDS: methylPREDNISolone sod succ 40 mg/mL INJ IVP (11:12)
[2025-05-17] MEDS: diphenhydrAMINE 50 mg/mL SDV 1mL 25 MG IVP (12:18)
[2025-05-17] MEDS: meperidine 50 mg/mL INJ 12.5 MG IVP (12:20)
--- NOTE | 2025-05-17 14:13 | PC.NURSE ---
Pt in infusion room for test dose of Obinituzumab. At 1102, pt stated she was feeling nauseaus and short of breath. Infusion was stopped, NS started at 500mL. O2 87% room air. Placed on 3L O2. Zenobia Fabian NP notified. Duoneb given at 1105. O2 increased to 4L. Zofran 8mg given at 1110. Solumedrol 40mg given at 1112. Infusion restarted at 1135. At 1149 pt stated she was very cold and had riggors. Infusion stopped. Notified Zenobia Fabian NP. Vitals 98.1, 120/82, HR62, O2 94 on 4L. Zenobia Fabian spoke with Dr. Hawkins. Verbal orders from Dr. Hawkins to give 25mg benadryl and demerol 12.5mg. Benadryl 25mg and Demerol 12.5mg given. Vitals at 1230- HR65, 89% O2 on 4L, Bp 99/64. BP rechecked at 1235- 100/63. pt stated she was feeling better after 30 minutes. Obinituzumab was restarted at 1302. Vitals at time of restart 88% O2 on 4L, BP 97/59, HR 69.
[2025-05-17 16:53] VITALS: BP 95/59; PULSE 72; RESP 16; TEMP 37.2; O2SAT 91
== END 2025-05-17 23:59 | disposition home or self-care (01) ==
PROVIDERS: Nurse Practitioner; Nurse Practitioner Family; PCP Registered Nurse; Visit Provider Internal Medicine Medical Oncology
DX: Z53.9 Procedure and treatment not carried out, unspecified reason; Z51.12 Encounter for antineoplastic immunotherapy; C91.10 Chronic lymphocytic leukemia of B-cell type not having achieved remission; Z79.899 Other long term (current) drug therapy; Z79.52 Long term (current) use of systemic steroids
CPT/HCPCS: 36415; 80053; 82306; 82728; 83615; 84443; 84550; 85007; 85025; 85610; 86705; 86706; 87340; 96367; 96375; 96376; 96413; 96415; 99214; 99215; J1100; J1200; J2175; J2405; J2919; J7030; J7050; J9301; J9999

== ENCOUNTER 2025-05-24 08:15 | Oncology outpatient (recurring) (ONCR) | payer MEDICARE, SELFPAY ==
[2025-05-18] VITALS (11 sets, daily range): BP systolic 93–124; BP diastolic 49–63; PULSE 56–72; RESP 16–17; TEMP 35.8–36.7; O2SAT 90–96
[2025-05-18] MEDS: diphenhydrAMINE 50 mg/mL SDV 1mL IVP (09:19)
[2025-05-24] VITALS (7 sets, daily range): BP systolic 93–155; BP diastolic 51–86; PULSE 51–58; RESP 16; TEMP 35.9–36.4; O2SAT 91–94
[2025-05-24 08:22] LABS: Hematocrit 34.6 % (36-47); Hemoglobin 10.90 g/dL (11.27-16.99); Mean Corpuscular HGB Conc 31.5 g/dL (30-55); Mean Corpuscular Hemoglobin 26.6 pg (27-33); Mean Corpuscular Volume 84.4 fl (85-98); Nucleated Red Blood Cells % 0 %; Platelet Count 77 10^3/cmm (157-399); Red Blood Count 4.10 10^6/uL (3.85-5.65); White Blood Count 6.63 10^3/uL (3.29-11.43)
[2025-05-24 08:37] LABS: Alanine Aminotransferase 15 U/L (0-33); Albumin Level 3.9 g/dL (3.5-5.2); Alkaline Phosphatase 73 U/L (35-105); Aspartate Amino Transferase 18 U/L (0-32); Blood Urea Nitrogen 72 mg/dL (8-23); Calcium 9.2 mg/dL (8.5-10.5); Carbon Dioxide 25 mmol/L (22-29); Chloride 96 mmol/L (98-107); Creatinine Clr Calc Pharmacy 37.8324; Globulin 1.8 g/dL (1.3-4.6); Glucose 161 mg/dL (65-115); Osmolality Calculated 307 mOsm/kg (285-295); Sodium 136 mmol/L (136-145); Total Protein 5.7 g/dL (6.6-8.7)
[2025-05-24 08:39] LABS: Anion Gap 19.3 (5-19); Potassium 4.3 mmol/L (3.5-5.1)
[2025-05-24] MEDS: diphenhydrAMINE 50 mg/mL SDV 1mL IVP (09:17)
[2025-05-24] MEDS: obinutuzumab 1,000 MG in sodium chloride 0.9% 250 ML 14.3 MG IV (10:39)
[2025-05-24 15:42] LABS: INR 1.06 (0.8-1.2); Prothrombin Time 14.50 SECONDS (12.1-14.9)
== END 2025-05-24 23:59 | disposition home or self-care (01) ==
PROVIDERS: Nurse Practitioner Family; PCP Registered Nurse; Visit Provider Internal Medicine Medical Oncology
DX: Z51.11 Encounter for antineoplastic chemotherapy; C91.10 Chronic lymphocytic leukemia of B-cell type not having achieved remission; I25.10 Atherosclerotic heart disease of native coronary artery without angina pectoris; D64.9 Anemia, unspecified; D69.6 Thrombocytopenia, unspecified; E61.1 Iron deficiency; Z87.891 Personal history of nicotine dependence; Z79.52 Long term (current) use of systemic steroids; Z79.899 Other long term (current) drug therapy; Z53.9 Procedure and treatment not carried out, unspecified reason
CPT/HCPCS: 80053; 85025; 85610; 96367; 96375; 96413; 96415; 99214; J1100; J1200; J7050; J9301; J9999

== ENCOUNTER 2025-05-31 06:46 | Oncology outpatient (recurring) (ONCR) | payer MEDICARE, SELFPAY ==
[2025-05-31 07:11] LABS: Hematocrit 33.1 % (36-47); Hemoglobin 10.10 g/dL (11.27-16.99); Mean Corpuscular HGB Conc 30.5 g/dL (30-55); Mean Corpuscular Hemoglobin 25.1 pg (27-33); Mean Corpuscular Volume 82.3 fl (85-98); Nucleated Red Blood Cells % 0 %; Platelet Count 127 10^3/cmm (157-399); Red Blood Count 4.02 10^6/uL (3.85-5.65); White Blood Count 7.63 10^3/uL (3.29-11.43)
[2025-05-31 07:27] LABS: INR 1.03 (0.8-1.2); Prothrombin Time 14.30 SECONDS (12.1-14.9)
[2025-05-31 07:37] LABS: Alanine Aminotransferase 13 U/L (0-33); Albumin Level 3.9 g/dL (3.5-5.2); Alkaline Phosphatase 71 U/L (35-105); Anion Gap 17.2 (5-19); Aspartate Amino Transferase 14 U/L (0-32); Blood Urea Nitrogen 52 mg/dL (8-23); Calcium 8.9 mg/dL (8.5-10.5); Carbon Dioxide 26 mmol/L (22-29); Chloride 96 mmol/L (98-107); Globulin 1.9 g/dL (1.3-4.6); Glucose 123 mg/dL (65-115); Osmolality Calculated 295 mOsm/kg (285-295); Potassium 4.2 mmol/L (3.5-5.1); Sodium 135 mmol/L (136-145); Total Protein 5.8 g/dL (6.6-8.7)
[2025-05-31] MEDS: diphenhydrAMINE 50 mg/mL SDV 1mL IVP (10:16)
[2025-05-31] MEDS: obinutuzumab 1,000 MG in sodium chloride 0.9% 250 ML 29 MG IV (12:35)
[2025-05-31 12:36] VITALS: BP 105/68; PULSE 60; RESP 16; TEMP 35.6; O2SAT 92
[2025-05-31 13:06] VITALS: BP 101/62; PULSE 66; RESP 17; TEMP 35.7; O2SAT 91
[2025-05-31 13:38] VITALS: BP 98/59; PULSE 59; RESP 17; TEMP 35.9; O2SAT 93
[2025-05-31 14:06] VITALS: BP 99/60; PULSE 58; RESP 17; TEMP 35.9; O2SAT 91
[2025-05-31 16:09] VITALS: BP 110/64; PULSE 76; RESP 16; TEMP 35.6; O2SAT 93
== END 2025-05-31 23:59 | disposition home or self-care (01) ==
PROVIDERS: PCP Registered Nurse; Visit Provider Internal Medicine Medical Oncology
DX: Z51.11 Encounter for antineoplastic chemotherapy (principal); C91.10 Chronic lymphocytic leukemia of B-cell type not having achieved remission; E61.1 Iron deficiency; Z87.891 Personal history of nicotine dependence; Z79.01 Long term (current) use of anticoagulants
CPT/HCPCS: 80053; 85025; 85610; 96367; 96375; 96413; 96415; 96417; 99214; J1100; J1200; J7050; J9301; J9999

== ENCOUNTER 2025-07-12 07:30 | Oncology outpatient (recurring) (ONCR) | payer MEDICARE, SELFPAY ==
[2025-06-21 12:40] LABS: Hematocrit 34.5 % (36-47); Hemoglobin 10.50 g/dL (11.27-16.99); Mean Corpuscular HGB Conc 30.4 g/dL (30-55); Mean Corpuscular Hemoglobin 25.2 pg (27-33); Mean Corpuscular Volume 82.9 fl (85-98); Nucleated Red Blood Cells % 0 %; Platelet Count 157 10^3/cmm (157-399); Red Blood Count 4.16 10^6/uL (3.85-5.65); White Blood Count 5.48 10^3/uL (3.29-11.43)
[2025-06-21 12:54] LABS: INR 1.12 (0.8-1.2); Prothrombin Time 15.20 SECONDS (12.1-14.9)
[2025-06-21 12:58] LABS: Alanine Aminotransferase 9 U/L (0-33); Albumin Level 3.9 g/dL (3.5-5.2); Alkaline Phosphatase 87 U/L (35-105); Anion Gap 15.2 (5-19); Aspartate Amino Transferase 11 U/L (0-32); Blood Urea Nitrogen 27 mg/dL (8-23); Calcium 9.2 mg/dL (8.5-10.5); Carbon Dioxide 28 mmol/L (22-29); Chloride 102 mmol/L (98-107); Creatinine Clr Calc Pharmacy 38.2069; Ferritin 84 ng/mL (15-150); Globulin 1.8 g/dL (1.3-4.6); Glucose 126 mg/dL (65-115); Iron 36 ug/dL (37-145); Osmolality Calculated 299 mOsm/kg (285-295); Potassium 4.2 mmol/L (3.5-5.1); Sodium 141 mmol/L (136-145); Total Iron Binding Capacity 332 mcg/dl; Total Protein 5.7 g/dL (6.6-8.7); Unsaturated Iron Binding 296 ug/dL (112-347)
[2025-06-21 13:14] LABS: Vitamin B12 315 pg/mL (232-1245)
[2025-06-28 14:25] LABS: Hematocrit 37.7 % (36-47); Hemoglobin 11.40 g/dL (11.27-16.99); Mean Corpuscular HGB Conc 30.2 g/dL (30-55); Mean Corpuscular Hemoglobin 24.6 pg (27-33); Mean Corpuscular Volume 81.3 fl (85-98); Nucleated Red Blood Cells % 0 %; Platelet Count 196 10^3/cmm (157-399); Red Blood Count 4.64 10^6/uL (3.85-5.65); White Blood Count 5.48 10^3/uL (3.29-11.43)
[2025-06-28 14:37] LABS: INR 1.68 (0.8-1.2); Prothrombin Time 20.90 SECONDS (12.1-14.9)
[2025-06-28 14:42] LABS: Alanine Aminotransferase 8 U/L (0-33); Albumin Level 4.3 g/dL (3.5-5.2); Alkaline Phosphatase 123 U/L (35-105); Anion Gap 15.4 (5-19); Aspartate Amino Transferase 13 U/L (0-32); Blood Urea Nitrogen 30 mg/dL (8-23); Calcium 9.7 mg/dL (8.5-10.5); Carbon Dioxide 33 mmol/L (22-29); Chloride 96 mmol/L (98-107); Creatinine Clr Calc Pharmacy 39.6440; Globulin 2.3 g/dL (1.3-4.6); Glucose 127 mg/dL (65-115); Osmolality Calculated 300 mOsm/kg (285-295); Potassium 3.4 mmol/L (3.5-5.1); Sodium 141 mmol/L (136-145); Total Protein 6.6 g/dL (6.6-8.7)
[2025-07-12 08:15] LABS: Hematocrit 37.9 % (36-47); Hemoglobin 11.60 g/dL (11.27-16.99); Mean Corpuscular HGB Conc 30.6 g/dL (30-55); Mean Corpuscular Hemoglobin 24.8 pg (27-33); Mean Corpuscular Volume 81.0 fl (85-98); Nucleated Red Blood Cells % 0 %; Platelet Count 222 10^3/cmm (157-399); Red Blood Count 4.68 10^6/uL (3.85-5.65); White Blood Count 5.49 10^3/uL (3.29-11.43)
[2025-07-12 08:39] LABS: INR 2.19 (0.8-1.2); Prothrombin Time 25.60 SECONDS (12.1-14.9)
[2025-07-12 08:41] LABS: Alanine Aminotransferase 8 U/L (0-33); Albumin Level 4.4 g/dL (3.5-5.2); Alkaline Phosphatase 115 U/L (35-105); Anion Gap 18.7 (5-19); Aspartate Amino Transferase 16 U/L (0-32); Blood Urea Nitrogen 35 mg/dL (8-23); Calcium 9.6 mg/dL (8.5-10.5); Carbon Dioxide 25 mmol/L (22-29); Chloride 104 mmol/L (98-107); Creatinine Clr Calc Pharmacy 39.9011; Globulin 2.0 g/dL (1.3-4.6); Glucose 119 mg/dL (65-115); Osmolality Calculated 307 mOsm/kg (285-295); Potassium 3.7 mmol/L (3.5-5.1); Sodium 144 mmol/L (136-145); Total Protein 6.4 g/dL (6.6-8.7)
[2025-07-12] MEDS: diphenhydrAMINE 50 mg/mL SDV 1mL IVP (09:42)
[2025-07-12] MEDS: obinutuzumab 1,000 MG in sodium chloride 0.9% 250 ML 29 MG IV (10:19)
[2025-07-12 13:45] VITALS: BP 118/68; PULSE 103; RESP 16; TEMP 35.9; O2SAT 95
[2025-07-12 14:45] LABS: Thyroid Stimulating Hormone 1.75 uIU/mL (0.27-4.20)
== END 2025-07-12 23:59 | disposition home or self-care (01) ==
PROVIDERS: Nurse Practitioner Family; PCP Registered Nurse; Visit Provider Internal Medicine Medical Oncology
DX: Z51.11 Encounter for antineoplastic chemotherapy; C91.10 Chronic lymphocytic leukemia of B-cell type not having achieved remission; D64.9 Anemia, unspecified; I25.10 Atherosclerotic heart disease of native coronary artery without angina pectoris; E61.1 Iron deficiency; Z79.899 Other long term (current) drug therapy; Z79.52 Long term (current) use of systemic steroids; Z87.891 Personal history of nicotine dependence; Z53.9 Procedure and treatment not carried out, unspecified reason
CPT/HCPCS: 36415; 80053; 82607; 82728; 82746; 83540; 83550; 84443; 85025; 85610; 96367; 96375; 96413; 96415; 99214; 99215; J1100; J1200; J7050; J9301; J9999

== ENCOUNTER → 2025-07-20 14:10 | Outpatient (BNVA) | payer MEDICARE, SELFPAY | PROVIDERS: PCP Registered Nurse; Referring Provider Nurse Practitioner; Visit Provider Internal Medicine Cardiovascular Disease | DX: I25.10 Atherosclerotic heart disease of native coronary artery without angina pectoris (principal); E78.00 Pure hypercholesterolemia, unspecified; I13.0 Hypertensive heart and chronic kidney disease with heart failure and stage 1 through stage 4 chronic kidney disease, or unspecified chronic kidney disease; N18.9 Chronic kidney disease, unspecified; I50.9 Heart failure, unspecified; Z87.891 Personal history of nicotine dependence | CPT/HCPCS: 99204; 99214 ==

== ENCOUNTER 2025-08-09 08:00 | Oncology outpatient (recurring) (ONCR) | payer MEDICARE, SELFPAY ==
[2025-07-26 12:37] LABS: Hematocrit 36.2 % (36-47); Hemoglobin 11.00 g/dL (11.27-16.99); Mean Corpuscular HGB Conc 30.4 g/dL (30-55); Mean Corpuscular Hemoglobin 24.0 pg (27-33); Mean Corpuscular Volume 78.9 fl (85-98); Nucleated Red Blood Cells % 0 %; Platelet Count 162 10^3/cmm (157-399); Red Blood Count 4.59 10^6/uL (3.85-5.65); White Blood Count 4.28 10^3/uL (3.29-11.43)
[2025-07-26 12:54] LABS: Alanine Aminotransferase 10 U/L (0-33); Albumin Level 4.1 g/dL (3.5-5.2); Alkaline Phosphatase 114 U/L (35-105); Anion Gap 14.8 (5-19); Aspartate Amino Transferase 11 U/L (0-32); Blood Urea Nitrogen 19 mg/dL (8-23); Calcium 9.4 mg/dL (8.5-10.5); Carbon Dioxide 26 mmol/L (22-29); Chloride 104 mmol/L (98-107); Globulin 1.9 g/dL (1.3-4.6); Glucose 101 mg/dL (65-115); Osmolality Calculated 294 mOsm/kg (285-295); Potassium 3.8 mmol/L (3.5-5.1); Sodium 141 mmol/L (136-145); Total Protein 6.0 g/dL (6.6-8.7)
[2025-07-26 13:11] LABS: Slide Review Slide Review Perform
[2025-08-09 08:20] LABS: Hematocrit 38.6 % (36-47); Hemoglobin 11.70 g/dL (11.27-16.99); Mean Corpuscular HGB Conc 30.3 g/dL (30-55); Mean Corpuscular Hemoglobin 23.9 pg (27-33); Mean Corpuscular Volume 78.8 fl (85-98); Nucleated Red Blood Cells % 0 %; Platelet Count 215 10^3/cmm (157-399); Red Blood Count 4.90 10^6/uL (3.85-5.65); White Blood Count 6.39 10^3/uL (3.29-11.43)
[2025-08-09 08:41] LABS: Alanine Aminotransferase 8 U/L (0-33); Albumin Level 4.3 g/dL (3.5-5.2); Alkaline Phosphatase 106 U/L (35-105); Anion Gap 15.2 (5-19); Aspartate Amino Transferase 10 U/L (0-32); Blood Urea Nitrogen 24 mg/dL (8-23); Calcium 9.2 mg/dL (8.5-10.5); Carbon Dioxide 28 mmol/L (22-29); Chloride 102 mmol/L (98-107); Creatinine Clr Calc Pharmacy 48.3954; Ferritin 52 ng/mL (15-150); Globulin 2.1 g/dL (1.3-4.6); Glucose 94 mg/dL (65-115); Iron 21 ug/dL (37-145); Osmolality Calculated 298 mOsm/kg (285-295); Potassium 3.2 mmol/L (3.5-5.1); Sodium 142 mmol/L (136-145); Total Iron Binding Capacity 374 mcg/dl; Total Protein 6.4 g/dL (6.6-8.7); Unsaturated Iron Binding 353 ug/dL (112-347)
[2025-08-09 08:47] LABS: INR 3.31 (0.8-1.2); Prothrombin Time 35.40 SECONDS (12.1-14.9)
[2025-08-09] MEDS: diphenhydrAMINE 50 mg/mL SDV 1mL IVP (09:20)
[2025-08-09 10:12] VITALS: BP 110/71; PULSE 103; RESP 16; TEMP 37.6; O2SAT 92
[2025-08-09] MEDS: obinutuzumab 1,000 MG in sodium chloride 0.9% 250 ML 29 MG IV (10:12)
[2025-08-09] MEDS: tetanus-diphtheria tox (adult) 0.5 mL SDV IM (10:16)
[2025-08-09 10:44] VITALS: BP 99/65; PULSE 86; RESP 18; TEMP 37; O2SAT 94
[2025-08-09 11:14] VITALS: BP 125/87; PULSE 96; RESP 18; TEMP 36.7; O2SAT 93
[2025-08-09 11:46] VITALS: BP 100/73; PULSE 84; RESP 18; TEMP 36.1; O2SAT 93
[2025-08-09 13:39] VITALS: BP 126/71; PULSE 91; RESP 18
== END 2025-08-09 23:59 | disposition home or self-care (01) ==
PROVIDERS: Nurse Practitioner Family; PCP Registered Nurse; Visit Provider Internal Medicine Medical Oncology
DX: Z53.9 Procedure and treatment not carried out, unspecified reason; Z51.11 Encounter for antineoplastic chemotherapy; C91.10 Chronic lymphocytic leukemia of B-cell type not having achieved remission; Z23 Encounter for immunization; W55.01XA Bitten by cat, initial encounter; I25.10 Atherosclerotic heart disease of native coronary artery without angina pectoris; D64.9 Anemia, unspecified; E61.1 Iron deficiency; L03.90 Cellulitis, unspecified; Z79.899 Other long term (current) drug therapy; Z79.52 Long term (current) use of systemic steroids; Z87.891 Personal history of nicotine dependence; Z79.01 Long term (current) use of anticoagulants
CPT/HCPCS: 36415; 80053; 82728; 83540; 83550; 85025; 85610; 90471; 90714; 96367; 96375; 96413; 96415; 99214; J1100; J1200; J7050; J9301; J9999

== ENCOUNTER 2025-09-06 08:21 | Oncology outpatient (recurring) (ONCR) | payer MEDICARE, SELFPAY ==
[2025-08-23 11:29] LABS: Hematocrit 39.7 % (36-47); Hemoglobin 11.80 g/dL (11.27-16.99); Mean Corpuscular HGB Conc 29.7 g/dL (30-55); Mean Corpuscular Hemoglobin 23.2 pg (27-33); Mean Corpuscular Volume 78.1 fl (85-98); Nucleated Red Blood Cells % 0 %; Platelet Count 193 10^3/cmm (157-399); Red Blood Count 5.08 10^6/uL (3.85-5.65); White Blood Count 7.24 10^3/uL (3.29-11.43)
[2025-08-23 11:33] LABS: Slide Review Slide Review Perform
[2025-08-23 11:44] LABS: Alanine Aminotransferase 9 U/L (0-33); Albumin Level 4.4 g/dL (3.5-5.2); Alkaline Phosphatase 104 U/L (35-105); Anion Gap 14.7 (5-19); Aspartate Amino Transferase 12 U/L (0-32); Blood Urea Nitrogen 27 mg/dL (8-23); Calcium 9.6 mg/dL (8.5-10.5); Carbon Dioxide 29 mmol/L (22-29); Chloride 100 mmol/L (98-107); Globulin 1.9 g/dL (1.3-4.6); Glucose 119 mg/dL (65-115); Osmolality Calculated 296 mOsm/kg (285-295); Potassium 3.7 mmol/L (3.5-5.1); Sodium 140 mmol/L (136-145); Total Protein 6.3 g/dL (6.6-8.7)
[2025-09-06 08:57] LABS: Hematocrit 40.8 % (36-47); Hemoglobin 12.40 g/dL (11.27-16.99); Mean Corpuscular HGB Conc 30.4 g/dL (30-55); Mean Corpuscular Hemoglobin 23.8 pg (27-33); Mean Corpuscular Volume 78.5 fl (85-98); Nucleated Red Blood Cells % 0 %; Platelet Count 172 10^3/cmm (157-399); Red Blood Count 5.20 10^6/uL (3.85-5.65); White Blood Count 7.86 10^3/uL (3.29-11.43)
[2025-09-06 09:10] LABS: INR 1.43 (0.8-1.2); Prothrombin Time 18.40 SECONDS (12.1-14.9)
[2025-09-06 09:14] LABS: Alanine Aminotransferase 13 U/L (0-33); Albumin Level 4.6 g/dL (3.5-5.2); Alkaline Phosphatase 112 U/L (35-105); Anion Gap 15.3 (5-19); Aspartate Amino Transferase 16 U/L (0-32); Blood Urea Nitrogen 37 mg/dL (8-23); Calcium 9.5 mg/dL (8.5-10.5); Carbon Dioxide 30 mmol/L (22-29); Chloride 98 mmol/L (98-107); Creatinine Clr Calc Pharmacy 45.3044; Globulin 1.8 g/dL (1.3-4.6); Glucose 103 mg/dL (65-115); Osmolality Calculated 299 mOsm/kg (285-295); Potassium 3.3 mmol/L (3.5-5.1); Sodium 140 mmol/L (136-145); Total Protein 6.4 g/dL (6.6-8.7)
[2025-09-06] MEDS: diphenhydrAMINE 50 mg/mL SDV 1mL IVP (09:53)
[2025-09-06] MEDS: obinutuzumab 1,000 MG in sodium chloride 0.9% 250 ML 29 MG IV (10:30)
[2025-09-06 10:34] VITALS: BP 143/75; PULSE 83; RESP 16; TEMP 36.8; O2SAT 91
[2025-09-06 11:00] VITALS: BP 94/61; PULSE 78; RESP 16; TEMP 36.3; O2SAT 92
[2025-09-06 11:30] VITALS: BP 90/59; PULSE 84; RESP 16; TEMP 36.4; O2SAT 90
[2025-09-06 13:58] VITALS: BP 110/69; PULSE 81; TEMP 36.4; O2SAT 94
== END 2025-09-06 23:59 | disposition home or self-care (01) ==
PROVIDERS: PCP Registered Nurse; Visit Provider Internal Medicine Medical Oncology
DX: Z51.11 Encounter for antineoplastic chemotherapy; C91.10 Chronic lymphocytic leukemia of B-cell type not having achieved remission; I25.10 Atherosclerotic heart disease of native coronary artery without angina pectoris; E61.1 Iron deficiency; Z87.891 Personal history of nicotine dependence; Z79.899 Other long term (current) drug therapy; Z79.52 Long term (current) use of systemic steroids; Z79.01 Long term (current) use of anticoagulants; Z53.9 Procedure and treatment not carried out, unspecified reason
CPT/HCPCS: 36415; 80053; 83615; 85025; 85610; 96367; 96375; 96413; 96415; 99214; J1100; J1200; J7050; J9301; J9999

== ENCOUNTER 2025-10-04 07:23 | Oncology outpatient (recurring) (ONCR) | payer MEDICARE, SELFPAY ==
[2025-09-23 11:12] LABS: Hematocrit 42.7 % (36-47); Hemoglobin 13.00 g/dL (11.27-16.99); Mean Corpuscular HGB Conc 30.4 g/dL (30-55); Mean Corpuscular Hemoglobin 23.3 pg (27-33); Mean Corpuscular Volume 76.5 fl (85-98); Nucleated Red Blood Cells % 0 %; Platelet Count 243 10^3/cmm (157-399); Red Blood Count 5.58 10^6/uL (3.85-5.65); White Blood Count 8.27 10^3/uL (3.29-11.43)
[2025-09-23 11:25] LABS: INR 1.71 (0.8-1.2); Prothrombin Time 21.10 SECONDS (12.1-14.9)
[2025-09-23 11:30] LABS: Alanine Aminotransferase 9 U/L (0-33); Albumin Level 4.5 g/dL (3.5-5.2); Alkaline Phosphatase 119 U/L (35-105); Anion Gap 16.7 (5-19); Aspartate Amino Transferase 13 U/L (0-32); Blood Urea Nitrogen 35 mg/dL (8-23); Calcium 9.3 mg/dL (8.5-10.5); Carbon Dioxide 27 mmol/L (22-29); Chloride 100 mmol/L (98-107); Globulin 1.9 g/dL (1.3-4.6); Glucose 120 mg/dL (65-115); Osmolality Calculated 299 mOsm/kg (285-295); Potassium 3.7 mmol/L (3.5-5.1); Sodium 140 mmol/L (136-145); Total Protein 6.4 g/dL (6.6-8.7)
[2025-09-23 11:36] LABS: Slide Review Slide Review Perform
[2025-10-04 07:34] LABS: Hematocrit 43.1 % (36-47); Hemoglobin 12.70 g/dL (11.27-16.99); Mean Corpuscular HGB Conc 29.5 g/dL (30-55); Mean Corpuscular Hemoglobin 22.9 pg (27-33); Mean Corpuscular Volume 77.7 fl (85-98); Nucleated Red Blood Cells % 0 %; Platelet Count 206 10^3/cmm (157-399); Red Blood Count 5.55 10^6/uL (3.85-5.65); White Blood Count 7.46 10^3/uL (3.29-11.43)
[2025-10-04 07:51] LABS: INR 2.14 (0.8-1.2); Prothrombin Time 25.20 SECONDS (12.1-14.9)
[2025-10-04 07:54] LABS: Alanine Aminotransferase 13 U/L (0-33); Albumin Level 4.1 g/dL (3.5-5.2); Alkaline Phosphatase 120 U/L (35-105); Aspartate Amino Transferase 16 U/L (0-32); Blood Urea Nitrogen 20 mg/dL (8-23); Calcium 9.2 mg/dL (8.5-10.5); Carbon Dioxide 31 mmol/L (22-29); Chloride 103 mmol/L (98-107); Globulin 2.1 g/dL (1.3-4.6); Glucose 105 mg/dL (65-115); Osmolality Calculated 297 mOsm/kg (285-295); Sodium 142 mmol/L (136-145); Total Protein 6.2 g/dL (6.6-8.7)
[2025-10-04 08:07] LABS: Anion Gap 11.9 (5-19); Potassium 3.9 mmol/L (3.5-5.1)
[2025-10-04] MEDS: diphenhydrAMINE 50 mg/mL SDV 1mL IVP (08:39)
[2025-10-04] MEDS: obinutuzumab 1,000 MG in sodium chloride 0.9% 250 ML 29 MG IV (10:05)
[2025-10-04 10:06] VITALS: BP 99/65; PULSE 80; RESP 17; TEMP 36.5; O2SAT 94
[2025-10-04 10:37] VITALS: BP 122/73; PULSE 65; RESP 17; TEMP 36
[2025-10-04 11:08] VITALS: BP 110/67; PULSE 80; RESP 17; TEMP 35.9; O2SAT 94
[2025-10-04 11:39] VITALS: BP 105/65; PULSE 84; RESP 17; TEMP 36.4; O2SAT 94
[2025-10-04 13:35] VITALS: BP 115/72; PULSE 81; RESP 17; TEMP 36.4; O2SAT 93
== END 2025-10-04 23:59 | disposition home or self-care (01) ==
PROVIDERS: Nurse Practitioner Family; PCP Registered Nurse; Visit Provider Internal Medicine Medical Oncology
DX: Z51.11 Encounter for antineoplastic chemotherapy; C91.10 Chronic lymphocytic leukemia of B-cell type not having achieved remission; I25.10 Atherosclerotic heart disease of native coronary artery without angina pectoris; E61.1 Iron deficiency; Z79.52 Long term (current) use of systemic steroids; Z79.899 Other long term (current) drug therapy; Z87.891 Personal history of nicotine dependence; Z79.01 Long term (current) use of anticoagulants; Z53.9 Procedure and treatment not carried out, unspecified reason
CPT/HCPCS: 36415; 80053; 85025; 85610; 96367; 96375; 96413; 96415; 99214; J1100; J1200; J7050; J9301; J9999